=== PATIENT | female | born 1960 | race Caucasian/White ===

== ENCOUNTER 2016-06-29 08:03 | Emergency (ER) | payer MEDICAID ==
[2016-06-29 08:26] VITALS: BMI 21.1
[2016-06-29] MEDS ORDERED: Sodium Chloride 0.9% 1,000 ML IV STA (08:42)
--- NOTE | 2016-06-29 08:44 | ED PDOC ---
HPI: CCC, URI, Sore Throat Time Seen by Provider: 06/29/16 08:06 Chief Complaint (Nursing): Anxiety Chief Complaint (Provider): shortness of breath History Per: Patient History/Exam Limitations: no limitations Onset/Duration Of Symptoms: Days (x2) Current Symptoms Are (Timing): Still Present Associated Symptoms: Cough, Nasal Congestion Severity: Mild Additional Complaint(s): Patient is a 55 year old female, who is well known to the ED for multiple visits and drug seeking behavior, presents to the ED complaining of worsening cough x2 days. Cough is associated with headache, shortness of breath with cough , pleuritic chest pain, congestion, and body aches. Patient has chronic right wrist pain and denies any new pains. Denies nausea, vomiting, and diarrhea. of note: Patient is requesting Xanax. PMD: none Past Medical History Reviewed: Historical Data, Nursing Documentation, Vital Signs Vital Signs: Last Vital Signs Temp 98.4 F 06/29/16 12:33 Pulse 109 H 06/29/16 12:33 Resp 16 06/29/16 12:33 BP 110/63 06/29/16 12:33 Pulse Ox 98 06/29/16 12:33 - Medical History PMH: Anxiety, Arthritis, Back Problems, Bronchitis, Depression, Fractures (hx of fx R wrist and R side rib 1 mos ago), HTN Denies: Diabetes, Hepatitis, HIV, Chronic Kidney Disease, Seizures, Sexually Transmitted Disease - Family History Family History: States: Unknown Family Hx, Hypertension - Social History Current smoker - smoking cessation education provided: No Alcohol: None Drugs: Denies - Home Medications Home Medications: Ambulatory Orders Medication Instructions Recorded ALPRAZolam [Xanax] 1 mg PO TID PRN 11/28/15 Zolpidem [Ambien] 10 mg PO HS PRN 11/28/15 Albuterol HFA [Ventolin HFA 90 2 puff IH Q6 #1 inhaler 05/23/16 mcg/actuation (8 g)] Benzonatate [Tessalon Perles] 200 mg PO TID #30 sgl 05/23/16 Ibuprofen [Motrin] 600 mg PO TID 7 Days 06/29/16 - Allergies Allergies/Adverse Reactions: Allergies Allergy/AdvReac Type Severity Reaction Status Date / Time Penicillins Allergy unknown Verified 06/29/16 08:31 Review of Systems ROS Statement: Except As Marked, All Systems Reviewed And Found Negative Constitutional: Positive for: Other (body aches) ENT: Positive for: Nose Congestion Respiratory: Positive for: Cough, Shortness of Breath (with cough), Pleuritic Pain (chest pain with cough) Gastrointestinal: Negative for: Nausea, Vomiting, Diarrhea Neurological: Positive for: Headache. Negative for: Dizziness Physical Exam - Reviewed Nursing Documentation Reviewed: Yes Vital Signs Reviewed: Yes - Physical Exam Appears: Positive for: Well, Non-toxic, No Acute Distress Head Exam: Positive for: ATRAUMATIC, NORMAL INSPECTION, NORMOCEPHALIC Skin: Positive for: Normal Color, Warm, DRY Eye Exam: Positive for: EOMI, Normal appearance, PERRL ENT: Positive for: Nasal Congestion Neck: Positive for: Normal, Painless ROM, Supple Cardiovascular/Chest: Positive for: Regular Rate, Rhythm. Negative for: Edema, Gallop, Murmur Respiratory: Positive for: Normal Breath Sounds. Negative for: Accessory Muscle Use, Rhonchi, Respiratory Distress Gastrointestinal/Abdominal: Positive for: Normal Exam, Soft. Negative for: Tenderness Back: Positive for: Normal Inspection. Negative for: L CVA Tenderness, R CVA Tenderness Extremity: Positive for: Normal ROM. 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 HR improved. Resting. Pt. hr possible elevation mild from chronic pain and not taking meds. Here multiple times for the same in the past. AAOx3. Tolerated PO. Ambulating. Medical Decision Making Medical Decision Making: Time: 8:10 Impression: 55 y/o female with cough and congestion Plan: EKG CMP Troponin CBC CXR Motrin 600 mg PO IVF Influenza A B stat Scribe Attestation: Documented by Adryan Storey acting as a scribe for Brett Perez MD. MD Chaney Attestation: All medical record entries made by the Ritu were at my direction and personally dictated by me. I have reviewed the chart and agree that the record accurately reflects my personal performance of the history, physical exam, medical decision making, and the department course for this patient. I have also personally directed, reviewed, and agree with the discharge instructions and disposition. Disposition - Clinical Impression Clinical Impression: URI, acute - Patient ED Disposition Is Patient to be Admitted: No Counseled Patient/Family Regarding: Studies Performed, Diagnosis, Need For Followup, Rx Given - Disposition Referrals: Tish Dao MD [Primary Care Provider] - 06/30/16 Disposition: Routine/Home Disposition Time: 13:15 Condition: STABLE Additional Instructions: Return if not better in 3 days. Prescriptions: Ibuprofen [Motrin] 600 mg PO TID 7 Days Instructions: Upper Respiratory Infection (ED)
[2016-06-29 09:44] LABS: BASO # 0.1 K/uL (0.0-0.2); BASO % 1.1 % (0.0-2.0); EOS % 0.3 % (0.0-4.0); HEMATOCRIT 40.5 % (34.0-47.0); LYMPH # 0.9 K/uL (1.0-4.3); LYMPH % 10.5 % (20.0-40.0); MEAN CELL VOLUME 88.2 fl (81.0-99.0); MEAN CORPUSCULAR HEMOGLOBIN 29.2 pg (27.0-31.0); MEAN CORPUSCULAR HGB CONC 33.1 g/dL (33.0-37.0); MEAN PLATELET VOLUME 8.5 fl (7.2-11.7); MONO # 0.7 K/uL (0.0-0.8); MONO % 7.7 % (0.0-10.0); NEUT # 6.8 K/uL (1.8-7.0); NEUT % 80.4 % (50.0-75.0); NRBC % 0.1 % (0.0-0.0); WHITE BLOOD COUNT 8.5 K/uL (4.8-10.8)
[2016-06-29 09:52] LABS: ALB/GLOB RATIO 1.2 (1.0-2.1); ALKALINE PHOSPHATASE 104 U/L (38-126); ALT/SGPT 24 U/L (9-52); AST/SGOT 22 U/L (14-36); BILIRUBIN,TOTAL 0.4 mg/dl (0.2-1.3); BLOOD UREA NITROGEN 13 mg/dl (7-17); CALCIUM 9.5 mg/dL (8.4-10.2); CARBON DIOXIDE 21 mmol/L (22-30); CHLORIDE 104 mmol/L (98-107); GFR AFRICAN-AMERICAN > 60; GLUCOSE,RANDOM 105 mg/dL (65-105); POTASSIUM 3.9 MMOL/L (3.6-5.0); SODIUM 145 mmol/l (132-148); TOTAL PROTEIN 8.5 G/DL (6.3-8.2)
[2016-06-29] MEDS ORDERED: Oxycodone/Acetaminophen 5/325 mg Tab ONE (10:59)
[2016-06-29] MEDS ORDERED: Oxycodone/Acetaminophen 5/325 mg Tab PO ONE (11:02)
[2016-06-29 12:34] VITALS: BP 110/63; TEMP 98.4
--- NOTE | 2016-06-29 12:46 | RAD ---
HISTORY: dyspnea COMPARISON: Chest x-ray performed 05/11/16 TECHNIQUE: Chest PA and lateral FINDINGS: Examination limited by habitus. LUNGS: No focal consolidation. Please note that chest x-ray has limited sensitivity for the detection of pulmonary masses. PLEURA: No significant pleural effusion identified. No definite pneumothorax . CARDIOVASCULAR: Heart size appears within normal limits. Ectatic aorta. Atherosclerotic calcifications of the aorta. OSSEOUS STRUCTURES: Osseous demineralization. Degenerative changes. Loss of vertebral body height at multiple levels. VISUALIZED UPPER ABDOMEN: Unremarkable. OTHER FINDINGS: None. IMPRESSION: No focal consolidation, significant pleural effusion, or definite pneumothorax identified. Osseous demineralization. Multilevel degenerative changes. Loss of vertebral body height at multiple levels; correlate clinically for age indeterminate compression fractures.
[2016-06-29 13:42] VITALS: PULSE 99
[2016-06-29 14:19] VITALS: RESP 18; O2SAT 95
--- NOTE | 2016-06-30 07:47 | CARD ---
APPROVED REPORT EKG Measurement Heart [id number] <Conclusion> Sinus tachycardia Nonspecific ST abnormality Abnormal ECG
== END 2016-06-29 14:03 | disposition home or self-care (01) ==
LOC: H.ER 08:03
DX: J06.9 Acute upper respiratory infection, unspecified (principal); I10 Essential (primary) hypertension; Z86.59 Personal history of other mental and behavioral disorders

== ENCOUNTER 2016-07-09 23:37 | Observation (INO) | payer MEDICAID ==
[2016-07-09 23:37] VITALS: BMI 21.1
[2016-07-09 23:52] VITALS: BP 118/68; PULSE 112; RESP 18; TEMP 97.4; O2SAT 97
--- NOTE | 2016-07-10 00:54 | ED PDOC ---
HPI: CCC, URI, Sore Throat Time Seen by Provider: 07/09/16 23:53 Chief Complaint (Nursing): Flu-like Symptoms Chief Complaint (Provider): cough History Per: Patient History/Exam Limitations: no limitations Have you had recent travel within the past 21 days to any of the following countries: [place], [place], [place] or [place]?: No Onset/Duration Of Symptoms: Hrs Current Symptoms Are (Timing): Still Present Additional Complaint(s): 55yo female presents to the ED stating she [facility] at 1700 and has been walking around and went into another residential and was turned away and told to go to ED. Patient states she has bronchitis and complaining of a cough. No fever, chills. Asking to stay until 7AM. Past Medical History Reviewed: Historical Data, Nursing Documentation, Vital Signs Vital Signs: Last Vital Signs Temp 97.4 F L 07/09/16 23:50 Pulse 112 H 07/09/16 23:50 Resp 18 07/09/16 23:50 BP 118/68 07/09/16 23:50 Pulse Ox 97 07/10/16 06:17 - Medical History PMH: Anxiety, Arthritis, Back Problems, Bronchitis, Depression, Fractures (hx of fx R wrist and R side rib 1 mos ago), HTN Denies: Diabetes, Hepatitis, HIV, Chronic Kidney Disease, Seizures, Sexually Transmitted Disease - Surgical History Surgical History: No Surg Hx - Family History Family History: States: Hypertension - Home Medications Home Medications: Ambulatory Orders Medication Instructions Recorded ALPRAZolam [Xanax] 1 mg PO TID PRN 11/28/15 Zolpidem [Ambien] 10 mg PO HS PRN 11/28/15 Albuterol HFA [Ventolin HFA 90 2 puff IH Q6 #1 inhaler 05/23/16 mcg/actuation (8 g)] Benzonatate [Tessalon Perles] 200 mg PO TID #30 sgl 05/23/16 Benzonatate [Tessalon Perles] 100 mg PO BID PRN 5 Days 06/29/16 Ibuprofen [Motrin] 600 mg PO TID 7 Days 06/29/16 - Allergies Allergies/Adverse Reactions: Allergies Allergy/AdvReac Type Severity Reaction Status Date / Time Penicillins Allergy unknown Verified 03/31/17 23:50 Review of Systems ROS Statement: Except As Marked, All Systems Reviewed And Found Negative Constitutional: Negative for: Fever, Chills Respiratory: Positive for: Cough Physical Exam - Reviewed Nursing Documentation Reviewed: Yes Vital Signs Reviewed: Yes - Physical Exam Appears: Positive for: Well, No Acute Distress Head Exam: Positive for: ATRAUMATIC, NORMAL INSPECTION, NORMOCEPHALIC Skin: Positive for: Normal Color, Warm, Dry Eye Exam: Positive for: Normal appearance, EOMI, PERRL ENT: Positive for: Normal ENT Inspection Neck: Positive for: Normal, Painless ROM, Supple Cardiovascular/Chest: Positive for: Regular Rate, Rhythm. Negative for: Murmur , Tachycardia Respiratory: Positive for: Normal Breath Sounds. Negative for: Wheezing, Respiratory Distress Gastrointestinal/Abdominal: Positive for: Normal Exam, Bowel Sounds, Soft. Negative for: Tenderness Back: Positive for: Normal Inspection. Negative for: L CVA Tenderness, R CVA Tenderness Extremity: Positive for: Normal ROM. Negative for: Deformity, Swelling Neurologic/Psych: Positive for: Alert, Oriented. Negative for: Motor/Sensory Deficits - ECG O2 Sat by Pulse Oximetry: 97 Pulse Ox Interpretation: Normal (RA) Medical Decision Making Medical Decision Makin: Impression: homelessness Plan: ED obs 0617: Patient is stable for d/c. Scribe Attestation: Documented by Rachel Ibrahim acting as a scribe for Alfa Boudreaux MD. Provider Scribe Attestation: All medical record entries made by the Scribe were at my direction and personally dictated by me. I have reviewed the chart and agree that the record accurately reflects my personal performance of the history, physical exam, medical decision making, and the department course for this patient. I have also personally directed, reviewed, and agree with the discharge instructions and disposition. ED OBSERVATION Date of observation admission: 07/10/16 Time of observation admission: 00:02 - Observation admission statement Patient is being placed in observation because:: homelessness Disposition - Clinical Impression Clinical Impression: Cough - Patient ED Disposition Is Patient to be Admitted: No - Disposition Disposition: Routine/Home Disposition Time: 06:17 Condition: STABLE
== END 2016-07-10 06:20 | disposition home or self-care (01) ==
LOC: H.ER 23:37 → H.EROBSV 07-10 00:02
PROVIDERS: ADMIT Emergency Medicine; ATTEND Emergency Medicine
DX: R05 Cough (principal); Z59.0 Homelessness; I10 Essential (primary) hypertension

== ENCOUNTER 2016-08-12 21:35 | Emergency (ER) | payer MEDICAID ==
[2016-08-12 21:36] VITALS: BMI 21.1
[2016-08-12 21:39] VITALS: BP 127/93; PULSE 82; RESP 18; TEMP 97.7; O2SAT 98
--- NOTE | 2016-08-12 23:13 | ED PDOC ---
HPI: General Adult Time Seen by Provider: 08/12/16 21:43 Chief Complaint (Nursing): Medical Clearance Chief Complaint (Provider): medical and psych clearance History Per: Patient History/Exam Limitations: no limitations Onset/Duration Of Symptoms: Mins Have you had recent travel within the past 21 days to any of the following countries: [place], [place], [place] or [place]?: No Current Symptoms Are (Timing): Better Additional Complaint(s): 55yo female with PMHx including anxiety presents to the ED, in custody, for medical and psychiatric clearance. Patient has no medical or psychiatric complaints at this time. Past Medical History Reviewed: Historical Data, Nursing Documentation, Vital Signs Vital Signs: Last Vital Signs Temp 97.7 F 08/12/16 21:37 Pulse 82 08/12/16 21:37 Resp 18 08/12/16 21:37 BP 127/93 H 08/12/16 21:37 Pulse Ox 98 08/12/16 23:15 - Medical History PMH: Anxiety, Arthritis, Back Problems, Bronchitis, Depression, Fractures (hx of fx R wrist and R side rib 1 mos ago), HTN Denies: HIV, Chronic Kidney Disease, Seizures, Sexually Transmitted Disease - Surgical History Surgical History: No Surg Hx - Family History Family History: States: Hypertension - Immunization History Hx Tetanus Toxoid Vaccination: No Hx Influenza Vaccination: No Hx Pneumococcal Vaccination: No - Home Medications Home Medications: Ambulatory Orders Medication Instructions Recorded ALPRAZolam [Xanax] 1 mg PO TID PRN 11/28/15 Zolpidem [Ambien] 10 mg PO HS PRN 11/28/15 Albuterol HFA [Ventolin HFA 90 2 puff IH Q6 #1 inhaler 05/23/16 mcg/actuation (8 g)] Benzonatate [Tessalon Perles] 100 mg PO BID PRN 5 Days 06/29/16 Ibuprofen [Motrin] 600 mg PO TID 7 Days 06/29/16 Potassium Chloride [K-Dur 20] 1 tab PO BID #25 tab 07/10/16 Benzonatate [Tessalon Perle] 100 mg PO BID #12 capsule 08/10/16 - Allergies Allergies/Adverse Reactions: Allergies Allergy/AdvReac Type Severity Reaction Status Date / Time Penicillins Allergy unknown Verified 07/10/16 11:42 Review of Systems ROS Statement: Except As Marked, All Systems Reviewed And Found Negative Physical Exam - Reviewed Nursing Documentation Reviewed: Yes Vital Signs Reviewed: Yes - Physical Exam Appears: Positive for: Well, No Acute Distress Head Exam: Positive for: ATRAUMATIC, NORMAL INSPECTION, NORMOCEPHALIC Skin: Positive for: Normal Color, Warm, Dry Eye Exam: Positive for: Normal appearance Neck: Positive for: Normal, Painless ROM, Supple Cardiovascular/Chest: Positive for: Regular Rate, Rhythm. Negative for: Murmur , Tachycardia Respiratory: Positive for: Normal Breath Sounds. Negative for: Wheezing, Respiratory Distress Gastrointestinal/Abdominal: Positive for: Normal Exam, Soft. Negative for: Tenderness Back: Positive for: Normal Inspection Extremity: Positive for: Normal ROM. Negative for: Deformity, Swelling Neurologic/Psych: Positive for: Alert, Oriented (x3 ) - ECG O2 Sat by Pulse Oximetry: 98 Pulse Ox Interpretation: Normal (RA) Medical Decision Making Medical Decision Makin: Impression: 55yo female presents for medical and psychiatric clearance Plan: Patient medically cleared for crisis evaluation. Scribe Attestation: Documented by Rachel Ibrahim acting as a scribe for Ave Nunez MD. Provider Scribe Attestation: All medical record entries made by the Scribe were at my direction and personally dictated by me. I have reviewed the chart and agree that the record accurately reflects my personal performance of the history, physical exam, medical decision making, and the department course for this patient. I have also personally directed, reviewed, and agree with the discharge instructions and disposition. Disposition - Clinical Impression Clinical Impression: Adjustment disorder - Disposition Disposition: Discharged/Transfer to Law Enforcement Disposition Time: 00:08 Condition: STABLE Additional Instructions: PATIENT MEDICALLY AND PSYCHIATRICALLY CLEARED FOR INCARCERATION. Instructions: Mood Disorders (ED)
== END 2016-08-13 00:46 ==
LOC: H.ER 21:35
DX: Z04.6 Encounter for general psychiatric examination, requested by authority (principal); Z88.0 Allergy status to penicillin

== ENCOUNTER 2016-11-06 14:30 | Emergency (ER) | payer MEDICAID ==
[2016-11-06 14:30] VITALS: BMI 21.1
[2016-11-06 14:36] VITALS: BP 138/93; PULSE 104; RESP 18; TEMP 99.8; O2SAT 100
[2016-11-06] MEDS ORDERED: Acetaminophen-Codeine 300/30 mg Tab PO STA (14:47)
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
--- NOTE | 2016-11-07 09:39 | RAD ---
PROCEDURE: Right Wrist Radiographs. HISTORY: wrist pain COMPARISON: None. FINDINGS: BONES: Questionable fracture of the distal radius and ulnar styloid. JOINTS: Normal. No dislocation. SOFT TISSUES: Normal. OTHER FINDINGS: None. IMPRESSION: Questionable fracture of the distal radius and ulnar styloid.
== END 2016-11-06 15:40 | disposition home or self-care (01) ==
LOC: H.ER 14:30
DX: S09.90XA Unspecified injury of head, initial encounter (principal); S60.212A Contusion of left wrist, initial encounter; Y04.0XXA Assault by unarmed brawl or fight, initial encounter; Y92.89 Other specified places as the place of occurrence of the external cause; F32.9 Major depressive disorder, single episode, unspecified; F41.9 Anxiety disorder, unspecified; I10 Essential (primary) hypertension; Z88.0 Allergy status to penicillin

== ENCOUNTER 2017-04-11 05:43 | Emergency (ER) | payer MEDICAID ==
[2017-04-11 05:44] VITALS: BMI 21.1
--- NOTE | 2017-04-11 06:14 | ED PDOC ---
HPI: Psych/Substance Abuse Time Seen by Provider: 04/11/17 05:46 Chief Complaint (Nursing): Substance Abuse History Per: Patient, EMS (Pt is a 56 y/o female with hx of Anxiety, Arthritis, seizure disorder and frequent ED visits for medication abuse brought in from skilled nursing for questionnable overdose of Xanax. As per EMS, pt was noted be slurring and lethargic with unsteady gait. She was found to have an empty bottle of Xanax that was recently filled on March 21. On questioning, pt denies taking xanax. Reports that she took Fioricet to relieve her left leg pain. States she took 8 pills at 8 pm. Denies suicidal or psychotic thoughts. ) Past Medical History Vital Signs: Last Vital Signs Temp 98.9 F 04/11/17 05:49 Pulse 84 04/11/17 05:49 Resp 16 04/11/17 05:49 BP 130/85 04/11/17 05:49 Pulse Ox 100 04/11/17 05:49 - Medical History PMH: Anxiety, Arthritis, Back Problems, Bronchitis, Depression, Fractures (hx of fx R wrist and R side rib 1 mos ago), HTN Denies: HIV, Chronic Kidney Disease, Seizures, Sexually Transmitted Disease - Family History Family History: States: Hypertension - Immunization History Hx Tetanus Toxoid Vaccination: No Hx Influenza Vaccination: No Hx Pneumococcal Vaccination: No - Home Medications Home Medications: Ambulatory Orders Medication Instructions Recorded ALPRAZolam [Xanax] 1 mg PO TID PRN 11/28/15 Zolpidem [Ambien] 10 mg PO HS PRN 11/28/15 Albuterol HFA [Ventolin HFA 90 2 puff IH Q6 #1 inhaler 05/23/16 mcg/actuation (8 g)] Benzonatate [Tessalon Perles] 100 mg PO BID PRN 5 Days sgl 06/29/16 Ibuprofen [Motrin] 600 mg PO TID 7 Days tab 06/29/16 Potassium Chloride [K-Dur 20] 1 tab PO BID #25 tab 07/10/16 Benzonatate [Tessalon Perle] 100 mg PO BID #12 capsule 08/10/16 Acetaminophen [Tylenol 325mg tab] 650 mg PO Q6 #30 tab 11/06/16 - Allergies Allergies/Adverse Reactions: Allergies Allergy/AdvReac Type Severity Reaction Status Date / Time Penicillins Allergy unknown Verified 11/06/16 14:33 Review of Systems Constitutional: Negative for: Fever, Chills Cardiovascular: Negative for: Chest Pain Respiratory: Negative for: Cough, Shortness of Breath Gastrointestinal: Negative for: Nausea, Vomiting, Abdominal Pain, Diarrhea Genitourinary Female: Negative for: Dysuria Musculoskeletal: Positive for: Leg Pain Neurological: Positive for: Change in Speech (Slurred speech), Headache. Negative for: Weakness, Numbness, Confusion, Seizures, Altered Mental Status Psych: Negative for: Suicidal ideation Physical Exam - Reviewed Nursing Documentation Reviewed: Yes Vital Signs Reviewed: Yes - Physical Exam Appears: Positive for: Well, Non-toxic, No Acute Distress Skin: Positive for: Normal Color Eye Exam: Positive for: EOMI, PERRL. Negative for: Nystagmus, Conjunctival injection Cardiovascular/Chest: Positive for: Regular Rate, Rhythm. Negative for: Murmur Respiratory: Positive for: Normal Breath Sounds. Negative for: Accessory Muscle Use, Crackles, Rales Gastrointestinal/Abdominal: Positive for: Normal Exam, Bowel Sounds, Soft. Negative for: Tenderness Extremity: Negative for: Normal ROM, Tenderness, Swelling Neurologic/Psych: Positive for: Alert, Oriented, Other (Slurred speech; comprehensible). Negative for: Motor/Sensory Deficits, Facial Droop - Laboratory Results Result Diagrams: 04/11/17 06:30 04/11/17 06:30 - ECG O2 Sat by Pulse Oximetry: 100 Medical Decision Making Medical Decision Making: Pt is a 56 y/o female with hx of Anxiety, Arthritis, seizure disorder and frequent ED visits for medication abuse brought in from skilled nursing for questionnable overdose of Xanax and/or Fiorocet. Plan: CBC BMP U/A Drug Tox, urine Alcohol, serum Acetaminophen Salicylic acid Poison control contacted by RN. Advised to call back and report lab findings. Signed pt to Dr. Nunez. Disposition - Clinical Impression Clinical Impression: Acetaminophen overdose - Patient ED Disposition Is Patient to be Admitted: Transfer of Care - Disposition Disposition Time: 07:46 Condition: FAIR Forms: [employer] (Yoruba)
[2017-04-11 06:40] LABS: BASO # 0.1 K/uL (0.0-0.2); BASO % 1.2 % (0.0-2.0); EOS # 0.2 K/uL (0.0-0.7); EOS % 2.5 % (0.0-4.0); HEMOGLOBIN 10.8 g/dL (12.0-16.0); LYMPH # 3.2 K/uL (1.0-4.3); LYMPH % 43.5 % (20.0-40.0); MEAN CELL VOLUME 84.6 fl (81.0-99.0); MEAN CORPUSCULAR HEMOGLOBIN 28.9 pg (27.0-31.0); MEAN CORPUSCULAR HGB CONC 34.2 g/dL (33.0-37.0); MEAN PLATELET VOLUME 7.7 fl (7.2-11.7); MONO # 0.4 K/uL (0.0-0.8); MONO % 5.1 % (0.0-10.0); NEUT # 3.5 K/uL (1.8-7.0); NEUT % 47.7 % (50.0-75.0); RBC 3.72 Mil/uL (3.80-5.20); RED CELL DISTRIBUTION WIDTH 13.7 % (11.5-14.5); WHITE BLOOD COUNT 7.4 K/uL (4.8-10.8)
[2017-04-11] MEDS ORDERED: Sodium Chloride 0.9% 1,000 ML IV STA (06:47)
[2017-04-11 06:51] LABS: BLOOD UREA NITROGEN 13 mg/dl (7-17); CALCIUM 9.6 mg/dL (8.4-10.2); GFR AFRICAN-AMERICAN > 60; GFR NON-AFRICAN AMERICAN > 60
[2017-04-11 06:53] LABS: ACETAMINOPHEN < 10.0 ug/ml (10.0-30.0); SALICYLATE < 1.0 mg/dl
[2017-04-11] MEDS ORDERED: Potassium Chloride 20 mEq ER Tab PO ONE (07:12)
--- NOTE | 2017-04-11 07:26 | ED PDOC ---
- Laboratory Results Result Diagrams: 04/11/17 06:30 04/11/17 06:30 - ECG O2 Sat by Pulse Oximetry: 100 Medical Decision Making Medical Decision Makin:00 Patient signed out to me by LAZARUS, pending clinical sobriety Saw and evaluated patient, awaiting urine tox, CT Head, and reevaluation 07:30 Signing out patient to Dr. Nunez Scribe Attestation: Documented by Linda Acosta, acting as a scribe for Hay Ortega MD Provider Scribe Attestation: All medical record entries made by the Scribe were at my direction and personally dictated by me. I have reviewed the chart and agree that the record accurately reflects my personal performance of the history, physical exam, medical decision making, and the department course for this patient. I have also personally directed, reviewed, and agree with the discharge instructions and disposition. Disposition - Clinical Impression Clinical Impression: Medication overdose, Chronic foot pain - POA Present On Arrival: None - Disposition Referrals: [facility] [Outside] [facility] [Outside] Disposition: Transfer of Care Disposition Time: 07:30 Condition: STABLE Instructions: Butalbital/Aspirin/Caffeine/Codeine (By mouth), Chronic Pain (ED) Forms: [employer] (Spanish) Patient Signed Over To: Ave Nunez
[2017-04-11 07:49] LABS: BENZODIAZEPINES, UR NEGATIVE (NEGATIVE); OPIATES, UR NEGATIVE (NEGATIVE); PHENCYCLIDINE, UR NEGATIVE (NEGATIVE)
[2017-04-11 07:51] LABS: ALB/GLOB RATIO 1.1 (1.0-2.1); BILIRUBIN,DIRECT 0.3 mg/ml (0.0-0.4)
[2017-04-11 07:53] LABS: BARBITURATES, UR POSITIVE (NEGATIVE)
[2017-04-11 08:03] VITALS: O2SAT 100
--- NOTE | 2017-04-11 08:10 | ED PDOC ---
- Laboratory Results Result Diagrams: 04/11/17 06:30 04/11/17 06:30 - ECG O2 Sat by Pulse Oximetry: 100 Medical Decision Making Medical Decision Makin:30 Patient singed over to me by Dr. Guido 09:45 Pt AAOX3, steady gait. Upon discharge, pt c/o L ankle pain X 10 weeks, evaluated by doctor, given Rx Motrin, requesting pain medication. On exam, foot without erythema, edema, deformity, induration, +2 DP pulse, sensation intact. Motrin ordered, will refer to Podiatry consult. Scribe Attestation: Documented by Linda Acosta, acting as a scribe for Ave Nunez MD Provider Scribe Attestation: All medical record entries made by the Scribe were at my direction and personally dictated by me. I have reviewed the chart and agree that the record accurately reflects my personal performance of the history, physical exam, medical decision making, and the department course for this patient. I have also personally directed, reviewed, and agree with the discharge instructions and disposition. Disposition - Clinical Impression Clinical Impression: Medication overdose, Chronic foot pain - POA Present On Arrival: None - Disposition Referrals: [facility] [Outside] Podiatry Clinic [Outside] Disposition: Routine/Home Disposition Time: 09:53 Condition: STABLE Instructions: Butalbital/Aspirin/Caffeine/Codeine (By mouth), Chronic Pain (ED) Forms: [employer] (Bengali)
--- NOTE | 2017-04-11 08:30 | CT ---
PROCEDURE: CT HEAD WITHOUT CONTRAST. HISTORY: Slurred speech COMPARISON: Noncontrast head CT performed 11/29/15 TECHNIQUE: Axial computed tomography images were obtained through the head/brain without intravenous contrast. Radiation dose: Total exam DLP = 737.11 mGy-cm. This CT exam was performed using one or more of the following dose reduction techniques: Automated exposure control, adjustment of the mA and/or kV according to patient size, and/or use of iterative reconstruction technique. FINDINGS: HEMORRHAGE: No intracranial hemorrhage. BRAIN: No mass effect or edema. Evidence of pineal gland cyst re-identified. The fonseca-white matter differentiation appears intact. Please note that MRI with diffusion imaging is more sensitive in the detection of acute ischemic event. VENTRICLES: No hydrocephalus. CALVARIUM: Unremarkable. PARANASAL SINUSES: Unremarkable as visualized. No significant inflammatory changes. MASTOID AIR CELLS: Unremarkable as visualized. No inflammatory changes. OTHER FINDINGS: None. IMPRESSION: No acute intracranial pathology identified. Evidence of pineal gland cyst re-identified.
[2017-04-11 10:28] VITALS: BP 138/88; PULSE 74; RESP 20; TEMP 97.7
[2017-04-11 11:35] LABS: SQUAMOUS EPITHIAL 2 /hpf (0-5); URINE BILIRUBIN NEGATIVE (NEGATIVE); URINE BLOOD NEGATIVE (NEGATIVE); URINE CLARITY SLIGHTY-CLOUDY (Clear); URINE COLOR STRAW (YELLOW); URINE GLUCOSE (UA) NEG (Normal); URINE LEUKOCYTE ESTERASE SMALL Leu/uL (Negative); URINE NITRATE NEGATIVE (NEGATIVE); URINE PROTEIN NEGATIVE (NEGATIVE); URINE UROBILINOGEN 0.2-1.0 mg/dL (0.2-1.0)
== END 2017-04-11 13:06 | disposition home or self-care (01) ==
LOC: H.ER 05:43
DX: T39.1X1A Poisoning by 4-Aminophenol derivatives, accidental (unintentional), initial encounter (principal); Z88.0 Allergy status to penicillin; I10 Essential (primary) hypertension; G89.29 Other chronic pain; G40.909 Epilepsy, unspecified, not intractable, without status epilepticus
CPT/HCPCS: 70450; 80048; 80076; 81003; 85025; 99285; G0480; J7040

== ENCOUNTER 2017-06-07 14:01 | Emergency (ER) | payer MEDICAID, OTHER ==
[2017-06-07 14:02] VITALS: BMI 21.1
[2017-06-07 14:07] VITALS: BP 125/84; PULSE 104; RESP 16; TEMP 97.6; O2SAT 96
--- NOTE | 2017-06-07 15:12 | ED PDOC ---
HPI: Altered Mental Status Time Seen by Provider: 06/07/17 14:36 Chief Complaint (Nursing): Altered Mental Status Chief Complaint (Provider): does not remember what happened History Per: Patient, EMS History/Exam Limitations: Clinical Condition Onset/Duration Of Symptoms: Hrs Current Symptoms Are (Timing): Still Present Description Of Symptoms: Confused Usual Baseline: Unknown Exacerbating Factor(s): Unknown Additional Complaint(s): 56 yo ,f, PMhx/o Anxiety, Arthritis, seizure disorder, substant abuse disorder is brought in by BLS after patient was found on the floor at her son's apartment. BLS reports that neighbours heard someone to fall and called 911. Patient was found on floor by BLS unable to remember what happened. In ED patient awake, alert, oriented x2 (not in place) reports that she took 2 tab of Ambient to sleep in the morning. She reports is living now in her son apartment and before that she was living in a alf. She only remember that she was outside the house cleaning and sweeping, but nothing else. She states in ED that she has hx/o seizure disorder and c/o lower back pain over sacrum area. She denies chest pain, SOB, cough, n,v,d,abd pain, dysuria, suicidal ideation, visual or auditory hallucination. Patient a recent visit to ED for Medication overdose. Patient able to give her son's phone number [phone]. Called patient's son. He reports that he was not at home and all he knows is from the neighbours who told him she fell. Reports patient is homeless and only stayed one night with him, but will return to alf today and he would help about a rehab program for her mother. PMD: DR Guadalupe in [place]" Patient does not remember whole name Past Medical History Vital Signs: Last Vital Signs Temp 97.6 F 06/07/17 14:03 Pulse 104 H 06/07/17 14:03 Resp 16 06/07/17 14:03 BP 125/84 06/07/17 14:03 Pulse Ox 96 06/07/17 14:03 - Medical History PMH: Anxiety, Arthritis, Back Problems, Bronchitis, Depression, Fractures (hx of fx R wrist and R side rib 1 mos ago), HTN Denies: HIV, Chronic Kidney Disease, Seizures, Sexually Transmitted Disease - Family History Family History: States: Hypertension - Social History Alcohol: None Drugs: Denies - Immunization History Hx Tetanus Toxoid Vaccination: No Hx Influenza Vaccination: No Hx Pneumococcal Vaccination: No - Home Medications Home Medications: Ambulatory Orders Medication Instructions Recorded ALPRAZolam [Xanax] 1 mg PO TID PRN 11/28/15 Zolpidem [Ambien] 10 mg PO HS PRN 11/28/15 Albuterol HFA [Ventolin HFA 90 2 puff IH Q6 #1 inhaler 05/23/16 mcg/actuation (8 g)] Benzonatate [Tessalon Perles] 100 mg PO BID PRN 5 Days sgl 06/29/16 Ibuprofen [Motrin] 600 mg PO TID 7 Days tab 06/29/16 Potassium Chloride [K-Dur 20] 1 tab PO BID #25 tab 07/10/16 Benzonatate [Tessalon Perle] 100 mg PO BID #12 capsule 08/10/16 Acetaminophen [Tylenol 325mg tab] 650 mg PO Q6 #30 tab 11/06/16 Nitrofurantoin Macrocrystals 1 cap PO BID #14 cap 06/07/17 [Macrobid] - Allergies Allergies/Adverse Reactions: Allergies Allergy/AdvReac Type Severity Reaction Status Date / Time Penicillins Allergy unknown Verified 04/11/17 10:18 Review of Systems Musculoskeletal: Positive for: Back Pain Physical Exam - Physical Exam Appears: Positive for: No Acute Distress Head Exam: Positive for: ATRAUMATIC, NORMOCEPHALIC Skin: Positive for: Normal Color Cardiovascular/Chest: Positive for: Regular Rate, Rhythm. Negative for: Murmur Respiratory: Positive for: Rales (right lung base). Negative for: Rhonchi, Wheezing Gastrointestinal/Abdominal: Positive for: Soft. Negative for: Tenderness, Distended, Guarding, Rebound Back: Positive for: Normal Inspection, Other (Td to palpation over sacral region , able to be in sitting position.straight raise leg test neg b/l) Extremity: Positive for: Normal ROM. Negative for: Tenderness, Pedal Edema Neurologic/Psych: Positive for: Alert, Oriented. Negative for: Motor/Sensory Deficits, Aphasia - Laboratory Results Result Diagrams: 06/07/17 15:44 06/07/17 15:58 - ECG O2 Sat by Pulse Oximetry: 96 Medical Decision Making Medical Decision Makin:20 56 yo , f, Pmhx/o Anxiety, arhtirits, brought in by BLS for AMS Initial Impression AMS may be secondary to postictal status after seizure or after withdrawal to medications (Benzodiazepines) Differential Illicit Drug Overdose. Medication Overdose, Meningitis,Encephalitis, Sepsis, Delirium Plan CBC, CMP,Mg, Phosp, ProBNP, Urine tox EKG, troponin CXR Ct Head w/o contrast Iv fluids NS 100 ml/h Patient able to give her son's phone number [phone]. Called patient's son. He reports that he was not at home and all he knows is from the neighbours who told him she fell down. Reports patient is homeless and only stayed one night with him, but will return to alf today and he would help about a rehab program for her mother. 17:55 Patient more oriented, reports feeling better. Labs reviewed CBC 12.1 K3.4 Pending UA , urine tox Kdur 20 mg given Disposition - Clinical Impression Clinical Impression: Sedative abuse, UTI (urinary tract infection) - Disposition Disposition Time: 17:59 Condition: IMPROVED Additional Instructions: FOLLOW UP WITH YOUR DOCTOR THIS WEEK PLEASE REFER TO ATTACHED LIST FOR ADDICTION TREATMENT CENTERS Prescriptions: Nitrofurantoin Macrocrystals [Macrobid] 1 cap PO BID #14 cap Instructions: Urinary Tract Infections in Adults, Drug Abuse and Drug Addiction (DC) Forms: [employer] (Colombian)
[2017-06-07 15:50] LABS: BASO # 0.1 K/uL (0.0-0.2); EOS # 0.2 K/uL (0.0-0.7); EOS % 1.5 % (0.0-4.0); HEMOGLOBIN 12.5 g/dL (12.0-16.0); LYMPH # 3.4 K/uL (1.0-4.3); LYMPH % 28.1 % (20.0-40.0); MEAN CELL VOLUME 84.3 fl (81.0-99.0); MEAN CORPUSCULAR HEMOGLOBIN 27.8 pg (27.0-31.0); MEAN CORPUSCULAR HGB CONC 33.1 g/dL (33.0-37.0); MEAN PLATELET VOLUME 8.5 fl (7.2-11.7); MONO # 0.7 K/uL (0.0-0.8); MONO % 5.9 % (0.0-10.0); NEUT # 7.7 K/uL (1.8-7.0); NEUT % 63.5 % (50.0-75.0); NRBC % 0.1 % (0.0-0.0); RBC 4.5 Mil/uL (3.80-5.20); RED CELL DISTRIBUTION WIDTH 15.2 % (11.5-14.5); WHITE BLOOD COUNT 12.1 K/uL (4.8-10.8)
[2017-06-07 16:17] LABS: ALB/GLOB RATIO 1.2 (1.0-2.1); ALBUMIN 4.2 g/dL (3.5-5.0); ALT/SGPT 21 U/L (9-52); AST/SGOT 27 U/L (14-36); BLOOD UREA NITROGEN 19 mg/dl (7-17); CALCIUM 9.4 mg/dL (8.4-10.2); GFR AFRICAN-AMERICAN > 60; GFR NON-AFRICAN AMERICAN > 60; MAGNESIUM 2.2 MG/DL (1.6-2.3)
--- NOTE | 2017-06-07 16:18 | RAD ---
PROCEDURE: CHEST RADIOGRAPH, 1 VIEW HISTORY: AMS.Possible Seizure COMPARISON: Chest radiograph dated 08/10/2016. FINDINGS: LUNGS: Clear. PLEURA: No pneumothorax or pleural fluid seen. CARDIOVASCULAR: Normal. OSSEOUS STRUCTURES: Unchanged. VISUALIZED UPPER ABDOMEN: Normal. OTHER FINDINGS: None. IMPRESSION: No active disease.
[2017-06-07 16:28] LABS: B-TYPE NATRIURETIC PEPTIDE 20.2 pg/ml (0-900)
[2017-06-07] MEDS ORDERED: Sodium Chloride 0.9% 1,000 ML IV SCH (16:30)
[2017-06-07] MEDS ORDERED: Potassium Chloride 20 mEq ER Tab PO ONE ×2 (16:31→16:47)
--- NOTE | 2017-06-07 16:41 | CT ---
PROCEDURE: CT HEAD WITHOUT CONTRAST. HISTORY: AMS.Fall.Possible seizure.Possible overdose COMPARISON: Comparison made with CT scan brain 04/11/2017. TECHNIQUE: Contiguous helical/ transaxial sections were obtained through the head/brain without intravenous contrast. Radiation dose: Total exam DLP = 1498.39 mGy-cm. This CT exam was performed using one or more of the following dose reduction techniques: Automated exposure control, adjustment of the mA and/or kV according to patient size, and/or use of iterative reconstruction technique. FINDINGS: HEMORRHAGE: No acute parenchymal, subarachnoid or extra-axial hemorrhage. BRAIN: No evidence of large acute infarct. No change pineal gland cyst. . Mild volume most notably affecting the posterior fossa structures. The. VENTRICLES: No obstructive hydrocephalus. CALVARIUM: No acute calvarial fractures are identified. PARANASAL SINUSES: Unremarkable as visualized. No significant inflammatory changes. MASTOID AIR CELLS: Unremarkable as visualized. No inflammatory changes. OTHER FINDINGS: None. IMPRESSION: No acute intracranial hemorrhage. Stable appearing pineal gland cyst. New Mild volume loss most notably affecting the posterior fossa structures. .
--- NOTE | 2017-06-07 17:52 | ED PDOC ---
- Laboratory Results Result Diagrams: 06/07/17 15:44 06/07/17 15:58 - ECG O2 Sat by Pulse Oximetry: 96 (RA) Pulse Ox Interpretation: Normal Medical Decision Making Medical Decision Making: Time: 1730 --Patient is signed off to Dr. Linnette James. Pending urine results. Scribe Attestation: Documented by Kiersten Valdez, acting as a scribe for Linnette James MD. Provider Scribe Attestation: All medical record entries made by the Scribe were at my direction and personally dictated by me. I have reviewed the chart and agree that the record accurately reflects my personal performance of the history, physical exam, medical decision making, and the department course for this patient. I have also personally directed, reviewed, and agree with the discharge instructions and disposition. Disposition - Clinical Impression Clinical Impression: Sedative abuse, UTI (urinary tract infection) - POA Present On Arrival: None - Disposition Disposition: Routine/Home Disposition Time: 19:00 Condition: IMPROVED Additional Instructions: FOLLOW UP WITH YOUR DOCTOR THIS WEEK PLEASE REFER TO ATTACHED LIST FOR ADDICTION TREATMENT CENTERS Prescriptions: Nitrofurantoin Macrocrystals [Macrobid] 1 cap PO BID #14 cap Instructions: Urinary Tract Infections in Adults, Drug Abuse and Drug Addiction (DC) Forms: [employer] (Armenian)
[2017-06-07 18:37] LABS: SQUAMOUS EPITHIAL 2 /hpf (0-5); URINE AMORPHOUS SEDIMENT RARE /ul (<OCC); URINE BACTERIA MANY (<OCC); URINE BILIRUBIN NEGATIVE (NEGATIVE); URINE BLOOD NEGATIVE (NEGATIVE); URINE CLARITY SLIGHTY-CLOUDY (Clear); URINE COLOR YELLOW (YELLOW); URINE GLUCOSE (UA) NEG (Normal); URINE LEUKOCYTE ESTERASE SMALL Leu/uL (Negative); URINE NITRATE POSITIVE (NEGATIVE); URINE PROTEIN NEGATIVE (NEGATIVE); URINE UROBILINOGEN 0.2-1.0 mg/dL (0.2-1.0)
[2017-06-07 18:53] LABS: BARBITURATES, UR POSITIVE (NEGATIVE); BENZODIAZEPINES, UR NEGATIVE (NEGATIVE); OPIATES, UR NEGATIVE (NEGATIVE); PHENCYCLIDINE, UR NEGATIVE (NEGATIVE)
--- NOTE | 2017-06-08 11:49 | CARD ---
APPROVED REPORT EKG Measurement Heart [id number] <Conclusion> Normal sinus rhythm Nonspecific ST and T wave abnormality Prolonged QT Abnormal ECG
== END 2017-06-07 20:07 | disposition home or self-care (01) ==
LOC: H.ER 14:01
DX: F13.10 Sedative, hypnotic or anxiolytic abuse, uncomplicated (principal); N39.0 Urinary tract infection, site not specified; Z86.59 Personal history of other mental and behavioral disorders; G40.909 Epilepsy, unspecified, not intractable, without status epilepticus; I10 Essential (primary) hypertension; Z88.0 Allergy status to penicillin
CPT/HCPCS: 70450; 71045; 80053; 80320; 80324; 80345; 80346; 80349; 80353; 80358; 80361; 81003; 82948; 83735; 83880; 83992; 84100; 84484; 85025; 93005; 99285; J7040

== ENCOUNTER 2017-06-18 21:55 | Emergency (ER) | payer MEDICAID, OTHER ==
[2017-06-18 21:55] VITALS: BMI 21.1
--- NOTE | 2017-06-18 22:26 | ED PDOC ---
HPI: Back Time Seen by Provider: 06/18/17 22:24 Chief Complaint (Nursing): Back Pain Chief Complaint (Provider): Lumbar Pain and Crisis Consultation History Per: Patient History/Exam Limitations: no limitations Onset/Duration Of Symptoms: Days (2) Current Symptoms Are (Timing): Still Present Quality Of Discomfort: Unable To Describe Previous Symptoms: Back Pain, Chronic Pain Associated Symptoms: None Exacerbating Factor(s): Movement, Standing Additional History Per: Patient - Risk Factors AAA Risk Factors: Pos: Older Than 49 Years Of Age Past Medical History Vital Signs: Last Vital Signs Temp 97 F L 06/18/17 21:58 Pulse 89 06/18/17 21:58 Resp 18 06/18/17 21:58 BP 114/86 06/18/17 21:58 Pulse Ox 100 06/18/17 21:58 - Medical History PMH: Anxiety, Arthritis, Back Problems, Bronchitis, Depression, Fractures (hx of fx R wrist and R side rib 1 mos ago), HTN, Seizures Denies: HIV, Chronic Kidney Disease, Sexually Transmitted Disease - Family History Family History: States: Hypertension - Immunization History Hx Tetanus Toxoid Vaccination: No Hx Influenza Vaccination: No Hx Pneumococcal Vaccination: No - Home Medications Home Medications: Ambulatory Orders Medication Instructions Recorded ALPRAZolam [Xanax] 1 mg PO TID PRN 11/28/15 Zolpidem [Ambien] 10 mg PO HS PRN 11/28/15 Albuterol HFA [Ventolin HFA 90 2 puff IH Q6 #1 inhaler 05/23/16 mcg/actuation (8 g)] Benzonatate [Tessalon Perles] 100 mg PO BID PRN 5 Days sgl 06/29/16 Ibuprofen [Motrin] 600 mg PO TID 7 Days tab 06/29/16 Potassium Chloride [K-Dur 20] 1 tab PO BID #25 tab 07/10/16 Benzonatate [Tessalon Perle] 100 mg PO BID #12 capsule 08/10/16 Acetaminophen [Tylenol 325mg tab] 650 mg PO Q6 #30 tab 11/06/16 Nitrofurantoin Macrocrystals 1 cap PO BID #14 cap 06/07/17 [Macrobid] - Allergies Allergies/Adverse Reactions: Allergies Allergy/AdvReac Type Severity Reaction Status Date / Time Penicillins Allergy unknown Verified 04/11/17 10:18 Review of Systems Musculoskeletal: Positive for: Back Pain Psych: Positive for: Anxiety, Withdrawal, Other (distant speech) Physical Exam - Physical Exam Appears: Positive for: Uncomfortable Back: Positive for: Normal Inspection, Vertebral Tenderness, Decreased ROM Extremity: Positive for: Normal ROM, Capillary Refill. Negative for: Tenderness , Calf Tenderness Neurologic/Psych: Negative for: Oriented, Mood/Affect - ECG O2 Sat by Pulse Oximetry: 100 - Progress ED Course And Treament: Lumbar CT Toradol Apap CBC CMP Alcohol and Drug Screen CXR Medical Decision Making Medical Decision Making: Lumbar pain, r/o acute spinal injury due to pt manner and distant speech affect, she will have a medical clearance crisis consultation Disposition - Clinical Impression Clinical Impression: Chronic pain, Urinary tract infection - Disposition Disposition Time: 00:08 Forms: [employer] (Urdu) Patient Signed Over To: Pretty Lamar PA-C (awaiting: cxr, ct results; labs for med clearance; psych consult)
[2017-06-18 23:19] LABS: SQUAMOUS EPITHIAL 17 /hpf (0-5); URINE BACTERIA OCC (<OCC); URINE BILIRUBIN NEGATIVE (NEGATIVE); URINE BLOOD SMALL (NEGATIVE); URINE CLARITY CLOUDY (Clear); URINE COLOR YELLOW (YELLOW); URINE GLUCOSE (UA) NEG (Normal); URINE LEUKOCYTE ESTERASE LARGE Leu/uL (Negative); URINE PROTEIN NEGATIVE (NEGATIVE); URINE UROBILINOGEN 0.2-1.0 mg/dL (0.2-1.0)
[2017-06-19] MEDS ORDERED: Tmp-Smz 800 mg-160 mg DS Tab PO STA (00:01)
[2017-06-19 00:05] LABS: BASO # 0.1 K/uL (0.0-0.2); EOS # 0.5 K/uL (0.0-0.7); HEMOGLOBIN 11.4 g/dL (12.0-16.0); LYMPH # 4.4 K/uL (1.0-4.3); LYMPH % 56.7 % (20.0-40.0); MEAN CELL VOLUME 84.3 fl (81.0-99.0); MEAN CORPUSCULAR HEMOGLOBIN 27.9 pg (27.0-31.0); MEAN PLATELET VOLUME 8.1 fl (7.2-11.7); MONO # 0.5 K/uL (0.0-0.8); MONO % 5.8 % (0.0-10.0); NEUT # 2.4 K/uL (1.8-7.0); NEUT % 30.5 % (50.0-75.0); NRBC % 0.3 % (0.0-0.0); RBC 4.08 Mil/uL (3.80-5.20); RED CELL DISTRIBUTION WIDTH 14.2 % (11.5-14.5); WHITE BLOOD COUNT 7.8 K/uL (4.8-10.8)
[2017-06-19] MEDS ORDERED: Tmp-Smz 800 mg-160 mg DS Tab ONE (00:14)
--- NOTE | 2017-06-19 00:17 | CT ---
EXAM: CT Lumbar Spine Without Intravenous Contrast CLINICAL HISTORY: 56 years old, female; Pain; Low back pain; Additional info: Lumbar pain followin seizure TECHNIQUE: Axial computed tomography images of the lumbar spine without intravenous contrast. All CT scans at this facility use one or more dose reduction techniques, viz.: automated exposure control; ma/kV adjustment per patient size (including targeted exams where dose is matched to indication; i.e. head); or iterative reconstruction technique. Coronal and sagittal reformatted images were created and reviewed. COMPARISON: CT abdomen and pelvis 05/12/2016 FINDINGS: Vertebrae/discs: Compression deformity involving vertebral bodies throughout the visualized thoracic and lumbar spine. Most severe compression deformity noted at L2 and L3, appearance is similar compared to available prior study dated 05/12/2016. L1 demonstrates evidence of moderate to severe chronic vertebral body compression deformity, however, this is new compared to the prior study. T11 demonstrates mild compression deformity. T12 demonstrates moderate compression deformity, new compared to prior study. L5 demonstrates mild compression deformity. There is associated moderate impression on the central canal due to retropulsion involving fractures L1 and L2. Otherwise, there is more mild impression on the central canal due to retropulsion or degenerative disc disease. Neural foramina narrowing from degenerative disc disease also noted, at least moderate at L1-L2 L2-L3 and L4-L5. IMPRESSION: Compression deformity involving vertebral bodies throughout the visualized thoracic and lumbar spine. Most severe compression deformity noted at L2 and L3, appearance is similar compared to available prior study dated 05/12/2016. T12 and L1 demonstrate compression deformity which does not clearly appear acute but is new compared to prior study. Associated moderate impression on the central canal due to retropulsion involving fractures L1 and L2. Please see additional details/findings as above. MRI can provide more sensitive evaluation. Appearance is abnormal for patient's age. Please correlate clinically.
[2017-06-19 00:33] LABS: ALB/GLOB RATIO 1.1 (1.0-2.1); ALBUMIN 3.6 g/dL (3.5-5.0); ALT/SGPT 24 U/L (9-52); AST/SGOT 24 U/L (14-36); BLOOD UREA NITROGEN 12 mg/dl (7-17); CALCIUM 9.4 mg/dL (8.4-10.2); GFR AFRICAN-AMERICAN > 60; GFR NON-AFRICAN AMERICAN > 60
[2017-06-19 00:34] LABS: BARBITURATES, UR POSITIVE (NEGATIVE); BENZODIAZEPINES, UR POSITIVE (NEGATIVE); OPIATES, UR NEGATIVE (NEGATIVE); PHENCYCLIDINE, UR NEGATIVE (NEGATIVE)
[2017-06-19 03:01] VITALS: TEMP 98.6
--- NOTE | 2017-06-19 03:44 | ED PDOC ---
- Laboratory Results Result Diagrams: 06/18/17 23:55 06/18/17 23:55 - ECG O2 Sat by Pulse Oximetry: 98 (RA) Pulse Ox Interpretation: Normal Medical Decision Making Medical Decision Making: Time: 00:00 Endorsed by ANDREY Nuñez pending CT results, labs, CXR and crisis eval. Pt noted to have UTI. Urine culture sent. Patient given dose of Bactrim. Disposition - Clinical Impression Clinical Impression: Chronic pain, Urinary tract infection - Disposition Forms: [employer] (Estonian)
--- NOTE | 2017-06-19 03:47 | ED PDOC ---
- Laboratory Results Result Diagrams: 06/18/17 23:55 06/18/17 23:55 - ECG O2 Sat by Pulse Oximetry: 98 (RA) Pulse Ox Interpretation: Normal Medical Decision Making Medical Decision Making: Time: 00:00 Endorsed by ANDREY Bird, pending CT results, labs, CXR and crisis eval. Patient noted to have UTI. Urine culture sent. Patient given a dose of Bactrim. Labs reviewed and are wnl. CXR : NAD, as read by ANDREY. EKG : NSR at 81 bpm, no acute St changes, as read by ANDREY. CT L spine : FINDINGS: Vertebrae/discs: Compression deformity involving vertebral bodies throughout the visualized thoracic and lumbar spine. Most severe compression deformity noted at L2 and L3, appearance is similar compared to available prior study dated 05/12/2016. L1 demonstrates evidence of moderate to severe chronic vertebral body compression deformity, however, this is new compared to the prior study. T11 demonstrates mild compression deformity. T12 demonstrates moderate compression deformity, new compared to prior study. L5 demonstrates mild compression deformity. There is associated moderate impression on the central canal due to retropulsion involving fractures L1 and L2. Otherwise, there is more mild impression on the central canal due to retropulsion or degenerative disc disease. Neural foramina narrowing from degenerative disc disease also noted, at least moderate at L1-L2 L2-L3 and L4-L5. IMPRESSION: Compression deformity involving vertebral bodies throughout the visualized thoracic and lumbar spine. Most severe compression deformity noted at L2 and L3, appearance is similar compared to available prior study dated 05/12/2016. T12 and L1 demonstrate compression deformity which does not clearly appear acute but is new compared to prior study. Associated moderate impression on the central canal due to retropulsion involving fractures L1 and L2. Please see additional details/findings as above. MRI can provide more sensitive evaluation. Appearance is abnormal for patient's age. Please correlate clinically. Dictated and Authenticated by: Lindsey Moya MD 06/19/2017 12:17 AM Eastern Time ([place] & [place]) Patient is medically cleared for crisis evaluation. Patient seen and evaluated by crisis. After crisis evaluation, patient will be for outpatient psychiatric f/u as per Dr. Ashton. On re-evaluation, patient is not to be somnolent but is arousable, oriented x3, in no acute distress. Patient states that she has no pain at this time, denies any bowel or bladder incontinence, paresthesia to her legs. She is aware of the multiple spinal fractures, which she states are old and are not new, she adds that she is currently f/u with a doctor, Dr. Small regarding the spinal fractures. Lab and CT results d/w the patient. Patient is able to ambulate in the ER with a steady gait with her walker. Patient instructed to follow-up with pmd, her spine doctor and outpatient psych referral provided by crisis in 1-2 days without fail. Return to the emergency room at any time for any new or worsening symptoms. Patient states she fully agrees with and understands discharge instructions. States that she agrees with the plan and disposition. Verbalized and repeated discharge instructions and plan. I have given the patient opportunity to ask any additional questions. Scribe Attestation: Documented by Patricia Bazan, acting as a scribe for Pretty Lamar PA-C. Provider Scribe Attestation: All medical record entries made by the Scribe were at my direction and personally dictated by me. I have reviewed the chart and agree that the record accurately reflects my personal performance of the history, physical exam, medical decision making, and the department course for this patient. I have also personally directed, reviewed, and agree with the discharge instructions and disposition. Disposition Counseled Patient/Family Regarding: Studies Performed, Diagnosis, Need For Followup, Rx Given - Clinical Impression Clinical Impression: Chronic pain, Urinary tract infection - POA Present On Arrival: None - Disposition Disposition: Routine/Home Disposition Time: 05:00 Condition: STABLE Additional Instructions: Thank you for letting us take care of you today. You were treated for chronic back pain, UTI. The emergency medical care you received today was directed at your acute symptoms. If you were prescribed any medication, please fill it and take as directed. It may take several days for your symptoms to resolve. Return to the Emergency Department if your symptoms worsen, do not improve, or if you have any other problems. Please contact your doctor in 2 days for re-evaluation and follow up / or call one of the physicians/clinics you have been referred to by crisis. Bring any paperwork you were given at discharge with you along with any medications you are taking to your follow up visit. Our treatment cannot replace ongoing medical care by a primary care provider (PCP) outside of the emergency department. Thank you for allowing the [facility] team to be part of your care today. If you had a urine culture test done : We will call you regarding any positive results If you had a CT scan : A Radiologist will review the ED reading if any change in treatment is needed we will contact you. 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
[2017-06-19 06:22] VITALS: BP 115/77; PULSE 88; RESP 20; O2SAT 100
--- NOTE | 2017-06-19 10:12 | RAD ---
HISTORY: crisis COMPARISON: No prior. TECHNIQUE: Chest PA and lateral FINDINGS: LUNGS: No active pulmonary disease. PLEURA: No significant pleural effusion identified. No pneumothorax apparent. CARDIOVASCULAR: Normal. Atherosclerotic aorta. OSSEOUS STRUCTURES: No significant abnormalities. VISUALIZED UPPER ABDOMEN: Normal. OTHER FINDINGS: None. IMPRESSION: No active disease.
--- NOTE | 2017-06-19 10:37 | CARD ---
APPROVED REPORT EKG Measurement Heart [id number] <Conclusion> Normal sinus rhythm Nonspecific ST abnormality Abnormal ECG
== END 2017-06-19 06:21 | disposition home or self-care (01) ==
LOC: H.ER 21:55
DX: N39.0 Urinary tract infection, site not specified (principal); G89.29 Other chronic pain; F32.9 Major depressive disorder, single episode, unspecified; F41.9 Anxiety disorder, unspecified; I10 Essential (primary) hypertension; R56.9 Unspecified convulsions; Z88.0 Allergy status to penicillin
CPT/HCPCS: 71046; 72131; 80053; 80320; 80324; 80345; 80346; 80349; 80353; 80358; 80361; 81003; 82009; 83992; 84600; 85025; 87086; 93005; 96372; 99283; J1885

== ENCOUNTER 2017-07-07 19:39 | Emergency (ER) | payer MEDICAID ==
[2017-07-07 19:39] VITALS: BMI 21.1
[2017-07-07 19:50] VITALS: RESP 16; TEMP 98.6; O2SAT 98
[2017-07-07] MEDS ORDERED: Albuterol-Ipratrop 3 mg / 0.5 (3 ml) UD INH STA (20:29)
[2017-07-07] MEDS ORDERED: Albuterol-Ipratrop 3 mg / 0.5 (3 ml) UD IH STA (20:29)
[2017-07-07] MEDS ORDERED: Sodium Chloride 0.9% 1,000 ML IV SCH (20:30)
--- NOTE | 2017-07-07 21:09 | ED PDOC ---
HPI: CCC, URI, Sore Throat Time Seen by Provider: 07/07/17 20:00 Chief Complaint (Nursing): Shortness Of Breath Chief Complaint (Provider): Cough, congestion, SOB History Per: Patient History/Exam Limitations: no limitations Onset/Duration Of Symptoms: Hrs (today) Current Symptoms Are (Timing): Still Present Associated Symptoms: Cough (productive), Sputum (yellow phlegm), Nasal Congestion, Nausea, Other (runny nose, generalized weakness, body aches, SOB, dizziness). denies: Fever, Chills, Vomiting, Diarrhea Ear Symptoms: Bilateral: None Additional Complaint(s): Radha Harris is a 56 year old female, with a past medical history of bronchitis, who presents to the emergency department complaining of productive cough with yellow phlegm, runny nose, congestion, shortness of breath, chest pain w/ cough, dizziness, nausea, body aches, and generalized weakness onset since today. She denies any fever, chills, vomiting, diarrhea, numbness or tingling. No further medical complaints. PMD: None provided. Past Medical History Reviewed: Historical Data, Nursing Documentation, Vital Signs Vital Signs: Last Vital Signs Temp 98.6 F 07/07/17 19:47 Pulse 91 H 07/07/17 19:47 Resp 16 07/07/17 19:47 BP 117/77 07/07/17 19:47 Pulse Ox 98 07/07/17 21:18 - Medical History PMH: Anxiety, Arthritis, Back Problems, Bronchitis, Depression, Fractures (hx of fx R wrist and R side rib 1 mos ago), HTN, Seizures Denies: Diabetes, Hepatitis, HIV, Chronic Kidney Disease, Sexually Transmitted Disease - Surgical History Surgical History: No Surg Hx - Family History Family History: States: Hypertension - Living Arrangements Living Arrangements: Other (homeless) - Immunization History Hx Tetanus Toxoid Vaccination: No Hx Influenza Vaccination: No Hx Pneumococcal Vaccination: No - Home Medications Home Medications: Ambulatory Orders Medication Instructions Recorded ALPRAZolam [Xanax] 1 mg PO TID PRN 11/28/15 Zolpidem [Ambien] 10 mg PO HS PRN 11/28/15 Albuterol HFA [Ventolin HFA 90 2 puff IH Q6 #1 inhaler 05/23/16 mcg/actuation (8 g)] Benzonatate [Tessalon Perles] 100 mg PO BID PRN 5 Days sgl 06/29/16 Ibuprofen [Motrin] 600 mg PO TID 7 Days tab 06/29/16 Potassium Chloride [K-Dur 20] 1 tab PO BID #25 tab 07/10/16 Benzonatate [Tessalon Perle] 100 mg PO BID #12 capsule 08/10/16 Acetaminophen [Tylenol 325mg tab] 650 mg PO Q6 #30 tab 11/06/16 Nitrofurantoin Macrocrystals 1 cap PO BID #14 cap 06/07/17 [Macrobid] Sulfamethoxazole/Trimethoprim 1 tab PO BID #14 tab 06/19/17 [Bactrim DS 800 mg-160 mg] Albuterol Sulfate [Proair Hfa] 0.09 mg IH Q6H PRN #2 inh 07/07/17 Oseltamivir Phosphate [Tamiflu] 75 mg PO BID 5 Days capsule 07/07/17 predniSONE [predniSONE Tab] 20 mg PO BID 5 Days tab 07/07/17 - Allergies Allergies/Adverse Reactions: Allergies Allergy/AdvReac Type Severity Reaction Status Date / Time Penicillins Allergy unknown Verified 04/11/17 10:18 Review of Systems ROS Statement: Except As Marked, All Systems Reviewed And Found Negative Constitutional: Positive for: Weakness (generalized), Other (body aches). Negative for: Fever, Chills ENT: Positive for: Nose Discharge, Nose Congestion Cardiovascular: Positive for: Chest Pain (w/ cough only) Respiratory: Positive for: Cough (productive), Shortness of Breath, Sputum ( yellow phlegm) Gastrointestinal: Positive for: Nausea. Negative for: Vomiting, Diarrhea Neurological: Positive for: Weakness, Dizziness. Negative for: Numbness (or tingling) Physical Exam - Reviewed Nursing Documentation Reviewed: Yes Vital Signs Reviewed: Yes - Physical Exam Appears: Positive for: Non-toxic Head Exam: Positive for: ATRAUMATIC, NORMAL INSPECTION, NORMOCEPHALIC Skin: Positive for: Normal Color, Warm, Dry Eye Exam: Positive for: Normal appearance, EOMI, PERRL ENT: Positive for: Nasal Congestion. Negative for: Pharyngeal Erythema Neck: Positive for: Painless ROM, Supple Cardiovascular/Chest: Positive for: Regular Rate, Rhythm. Negative for: Murmur Respiratory: Positive for: Decreased Breath Sounds, Wheezing (b/l expiratory) Gastrointestinal/Abdominal: Positive for: Normal Exam, Soft. Negative for: Tenderness Back: Positive for: Normal Inspection. Negative for: L CVA Tenderness, R CVA Tenderness, Vertebral Tenderness Extremity: Positive for: Normal ROM. Negative for: Tenderness, Deformity, Swelling Neurologic/Psych: Positive for: Alert, Oriented. Negative for: Motor/Sensory Deficits - Laboratory Results Result Diagrams: 07/07/17 21:15 07/07/17 21:15 Interpretation Of Abn Labs: no acute - ECG ECG: Positive for: Interpreted By Me, Viewed By Me ECG Rhythm: Positive for: Normal QRS, Normal ST Segment O2 Sat by Pulse Oximetry: 98 (RA) Pulse Ox Interpretation: Normal - Radiology X-Ray: Interpreted by Me, Viewed By Me X-Ray Interpretation: No Acute Disease - Progress ED Course And Treament: 2328: Stable. AAOx3. Pain free. Tolerated po. Bronchitis and possible flu despite flu neg. Will rx tamiflu. No dyspnea or wheezes. Medical Decision Making Medical Decision Making: Initial Impression: Initial Plan: --ABG Shock Panel --EKG --B-Type Natriuretic Peptide --CMP --Magnesium --Phosphorus --Troponin I --CBC w/ differential --PTT --PT --Chest Portable [RAD] --Tylenol 325mg tab 975 mg PO --Duoneb 3 ml INH --Duoneb 3 ml INH --SOLU-medrol 125 mg IVP --Sodium Chloride 1,000 ml IV 500 mls/hr --Blood culture --Peak flow pre/post Tx --Influenza A B --Reevaluation Scribe Attestation: Documented by Ronaldo Alcala, acting as a scribe for Brett Perez MD Provider Scribe Attestation: All medical record entries made by the Scribe were at my direction and personally dictated by me. I have reviewed the chart and agree that the record accurately reflects my personal performance of the history, physical exam, medical decision making, and the department course for this patient. I have also personally directed, reviewed, and agree with the discharge instructions and disposition. Disposition - Clinical Impression Clinical Impression: Bronchitis, Flu-like symptoms - Patient ED Disposition Is Patient to be Admitted: No Counseled Patient/Family Regarding: Studies Performed, Diagnosis, Need For Followup, Rx Given - Disposition Referrals: [facility] [Outside] - 07/08/17 Disposition: Routine/Home Disposition Time: 23:31 Condition: FAIR Additional Instructions: Return if not better in 3 days. Prescriptions: Albuterol Sulfate [Proair Hfa] 0.09 mg IH Q6H PRN #2 inh PRN Reason: Wheezing Oseltamivir Phosphate [Tamiflu] 75 mg PO BID 5 Days capsule predniSONE [predniSONE Tab] 20 mg PO BID 5 Days tab Instructions: Acute Bronchitis, Flu
[2017-07-07 21:20] LABS: ABG ALLEN TEST YES; ARTERIAL BLOOD GAS HCO3 27.3 mmol/L (21-28); ARTERIAL BLOOD GAS O2 SAT 95.9 % (95-98); ARTERIAL BLOOD GAS PCO2 37 mm/Hg (35-45); ARTERIAL BLOOD GAS PH 7.47 (7.35-7.45); ARTERIAL BLOOD GAS PO2 64 mm/Hg (80-100)
[2017-07-07 21:36] LABS: BASO # 0.1 K/uL (0.0-0.2); BASO % 1.1 % (0.0-2.0); EOS # 0.4 K/uL (0.0-0.7); EOS % 5.4 % (0.0-4.0); HEMOGLOBIN 11.4 g/dL (12.0-16.0); LYMPH # 2.3 K/uL (1.0-4.3); LYMPH % 32.1 % (20.0-40.0); MEAN CELL VOLUME 84.2 fl (81.0-99.0); MEAN CORPUSCULAR HEMOGLOBIN 28.1 pg (27.0-31.0); MEAN CORPUSCULAR HGB CONC 33.3 g/dL (33.0-37.0); MEAN PLATELET VOLUME 8.2 fl (7.2-11.7); MONO # 1.1 K/uL (0.0-0.8); NEUT # 3.3 K/uL (1.8-7.0); NEUT % 46.4 % (50.0-75.0); RBC 4.07 Mil/uL (3.80-5.20); RED CELL DISTRIBUTION WIDTH 14.5 % (11.5-14.5); WHITE BLOOD COUNT 7.1 K/uL (4.8-10.8)
[2017-07-07 21:45] LABS: ALB/GLOB RATIO 1.1 (1.0-2.1); ALBUMIN 4.1 g/dL (3.5-5.0); ALT/SGPT 22 U/L (9-52); AST/SGOT 25 U/L (14-36); BLOOD UREA NITROGEN 15 mg/dl (7-17); CALCIUM 9.8 mg/dL (8.4-10.2); GFR AFRICAN-AMERICAN > 60; GFR NON-AFRICAN AMERICAN > 60
[2017-07-07 21:49] LABS: PARTIAL THROMBOPLASTIN TIME 30.9 Seconds (25.6-37.1); PROTHROMBIN TIME 10.9 Seconds (9.8-13.1)
[2017-07-07 21:52] LABS: B-TYPE NATRIURETIC PEPTIDE 11.5 pg/ml (0-900)
[2017-07-07] MEDS ORDERED: Albuterol-Ipratrop 3 mg / 0.5 (3 ml) UD ONE (22:21)
[2017-07-08 00:12] VITALS: BP 136/79; PULSE 85
--- NOTE | 2017-07-08 09:05 | RAD ---
HISTORY: Sepsis Patient COMPARISON: Chest radiograph dated 06/19/2017. FINDINGS: LUNGS: No active pulmonary disease. PLEURA: No significant pleural effusion identified, no pneumothorax apparent. CARDIOVASCULAR: Cardiomediastinal silhouette stably prominent. OSSEOUS STRUCTURES: Unchanged. VISUALIZED UPPER ABDOMEN: Normal. OTHER FINDINGS: None. IMPRESSION: No active disease.
--- NOTE | 2017-07-08 20:30 | CARD ---
APPROVED REPORT EKG Measurement Heart [id number] <Conclusion> Normal sinus rhythm Normal ECG
== END 2017-07-08 00:20 | disposition home or self-care (01) ==
LOC: H.ER 19:39
DX: J11.1 Influenza due to unidentified influenza virus with other respiratory manifestations (principal); J40 Bronchitis, not specified as acute or chronic; I10 Essential (primary) hypertension; F32.9 Major depressive disorder, single episode, unspecified; F41.9 Anxiety disorder, unspecified; Z88.0 Allergy status to penicillin
CPT/HCPCS: 36600; 71045; 80053; 82803; 83735; 83880; 84100; 84484; 85025; 85610; 85730; 87040; 87804; 93005; 94640; 96361; 96374; 99283; J2930; J7040

== ENCOUNTER 2017-07-08 16:24 | Emergency (ER) | payer MEDICAID ==
[2017-07-08 16:24] VITALS: BMI 21.1
[2017-07-08 16:28] VITALS: TEMP 97.2
[2017-07-08] MEDS ORDERED: Albuterol 0.083% Inhal Sol (2.5 mg/3 mL) UD INH STA (17:03)
--- NOTE | 2017-07-08 17:08 | ED PDOC ---
HPI: CCC, URI, Sore Throat Time Seen by Provider: 07/08/17 16:37 Chief Complaint (Nursing): Cough, Cold, Congestion History Per: Patient History/Exam Limitations: no limitations Onset/Duration Of Symptoms: Days (3), Gradual Current Symptoms Are (Timing): Still Present Associated Symptoms: Cough. denies: Fever, Chills, Sore Throat, Sputum, Neck Pain, Myalgias, Nasal Congestion, Nausea, Vomiting, Diarrhea Severity: Mild Additional History Per: Patient Additional Complaint(s): pt seen here yesterday had exhaustive and nml workup, did not fill prescriptions , states worsening cough, sent over here from homeless [facility] Past Medical History Reviewed: Historical Data, Nursing Documentation, Vital Signs Vital Signs: Last Vital Signs Temp 97.2 F L 07/08/17 16:25 Pulse 103 H 07/08/17 16:25 Resp 16 07/08/17 16:25 BP 147/94 H 07/08/17 16:25 Pulse Ox 99 07/08/17 17:52 - Medical History PMH: Anxiety, Arthritis, Back Problems, Bronchitis, Depression, Fractures (hx of fx R wrist and R side rib 1 mos ago), HTN, Seizures Denies: Diabetes, Hepatitis, HIV, Chronic Kidney Disease, Sexually Transmitted Disease - Family History Family History: States: Unknown Family Hx, Hypertension - Living Arrangements Living Arrangements: With Friends/Others - Social History Current smoker - smoking cessation education provided: No - Immunization History Hx Tetanus Toxoid Vaccination: No Hx Influenza Vaccination: No Hx Pneumococcal Vaccination: No - Home Medications Home Medications: Ambulatory Orders Medication Instructions Recorded ALPRAZolam [Xanax] 1 mg PO TID PRN 11/28/15 Zolpidem [Ambien] 10 mg PO HS PRN 11/28/15 Albuterol HFA [Ventolin HFA 90 2 puff IH Q6 #1 inhaler 05/23/16 mcg/actuation (8 g)] Benzonatate [Tessalon Perles] 100 mg PO BID PRN 5 Days sgl 06/29/16 Ibuprofen [Motrin] 600 mg PO TID 7 Days tab 06/29/16 Potassium Chloride [K-Dur 20] 1 tab PO BID #25 tab 07/10/16 Benzonatate [Tessalon Perle] 100 mg PO BID #12 capsule 08/10/16 Acetaminophen [Tylenol 325mg tab] 650 mg PO Q6 #30 tab 11/06/16 Nitrofurantoin Macrocrystals 1 cap PO BID #14 cap 06/07/17 [Macrobid] Sulfamethoxazole/Trimethoprim 1 tab PO BID #14 tab 06/19/17 [Bactrim DS 800 mg-160 mg] Albuterol Sulfate [Proair Hfa] 0.09 mg IH Q6H PRN #2 inh 07/07/17 Oseltamivir Phosphate [Tamiflu] 75 mg PO BID 5 Days capsule 07/07/17 predniSONE [predniSONE Tab] 20 mg PO BID 5 Days tab 07/07/17 Albuterol HFA [Ventolin HFA 90 2 puff IH [id number] #60 puff 07/08/17 mcg/actuation (8 g)] Azithromycin 250 mg PO DAILY 3 Days #3 tablet 07/08/17 Methylprednisolone [Medrol Dose 4 mg PO DAILY #21 mg 07/08/17 Pack (21 tabs)] - Allergies Allergies/Adverse Reactions: Allergies Allergy/AdvReac Type Severity Reaction Status Date / Time Penicillins Allergy unknown Verified 04/11/17 10:18 Review of Systems ROS Statement: Except As Marked, All Systems Reviewed And Found Negative Constitutional: Negative for: Fever, Chills Cardiovascular: Negative for: Chest Pain, Palpitations Respiratory: Positive for: Cough. Negative for: Shortness of Breath, Sputum Gastrointestinal: Negative for: Nausea, Vomiting, Abdominal Pain, Diarrhea Physical Exam - Reviewed Nursing Documentation Reviewed: Yes Vital Signs Reviewed: Yes - Physical Exam Appears: Positive for: Uncomfortable Head Exam: Positive for: ATRAUMATIC, NORMAL INSPECTION, NORMOCEPHALIC Eye Exam: Positive for: Normal appearance, EOMI, PERRL Neck: Positive for: Normal, Painless ROM, Supple Cardiovascular/Chest: Positive for: Regular Rate, Rhythm, Chest Non Tender. Negative for: Edema, Gallop, Murmur, Bradycardia, Tachycardia Respiratory: Positive for: Normal Breath Sounds. Negative for: Decreased Breath Sounds, Accessory Muscle Use, Crackles, Rales, Rhonchi, Stridor, Wheezing , Respiratory Distress Pulses-Radial (L): 2+ Pulses-Radial (R): 2+ Gastrointestinal/Abdominal: Positive for: Normal Exam, Bowel Sounds, Soft. Negative for: Tenderness Back: Positive for: Normal Inspection. Negative for: L CVA Tenderness, R CVA Tenderness Extremity: Positive for: Normal ROM. Negative for: Tenderness, Pedal Edema, Calf Tenderness, Capillary Refill, Deformity, Swelling Neurologic/Psych: Positive for: Alert, dialysis nurse II-XII, Oriented. Negative for: Motor/Sensory Deficits - ECG ECG: Positive for: Interpreted By Me ECG Rhythm: Positive for: Normal QRS, Normal ST Segment, Sinus Rhythm (rate of 95). Negative for: ST/T Changes O2 Sat by Pulse Oximetry: 99 Pulse Ox Interpretation: Normal - Radiology X-Ray: Interpreted by Me X-Ray Interpretation: No Acute Disease - Progress ED Course And Treament: pt feels better, advise to continue treatment, pt agree's with plan and leaves ambulatory and in good spirits. Re-evaluation Time: 17:49 Condition: Re-examined, Improved Disposition - Clinical Impression Clinical Impression: Bronchitis - Patient ED Disposition Is Patient to be Admitted: No Counseled Patient/Family Regarding: Studies Performed, Diagnosis, Need For Followup, Rx Given - Disposition Referrals: [facility] [Outside] (2 to 3 days) Disposition: Routine/Home Disposition Time: 17:50 Condition: GOOD Prescriptions: Albuterol HFA [Ventolin HFA 90 mcg/actuation (8 g)] 2 puff IH [id number] #60 puff Azithromycin 250 mg PO DAILY 3 Days #3 tablet Methylprednisolone [Medrol Dose Pack (21 tabs)] 4 mg PO DAILY #21 mg Instructions: Acute Bronchitis Forms: [employer] (Palestinian), [facility] ED School/Work Excuse
[2017-07-08] MEDS ORDERED: Albuterol 0.083% Inhal Sol (2.5 mg/3 mL) UD ONE (17:54)
--- NOTE | 2017-07-08 17:57 | RAD ---
HISTORY: cough COMPARISON: 07/07/2017 FINDINGS: LUNGS: No active pulmonary disease. PLEURA: No significant pleural effusion identified, no pneumothorax apparent. CARDIOVASCULAR: Normal. OSSEOUS STRUCTURES: No significant abnormalities. VISUALIZED UPPER ABDOMEN: Normal. OTHER FINDINGS: None. IMPRESSION: No active disease.
[2017-07-08 19:04] VITALS: BP 146/84; PULSE 87; RESP 18; O2SAT 100
== END 2017-07-08 19:04 | disposition home or self-care (01) ==
LOC: H.ER 16:24
DX: J40 Bronchitis, not specified as acute or chronic (principal); F32.9 Major depressive disorder, single episode, unspecified; F41.9 Anxiety disorder, unspecified; I10 Essential (primary) hypertension; Z88.0 Allergy status to penicillin

== ENCOUNTER 2017-07-08 19:40 | Emergency (ER) | payer MEDICAID ==
[2017-07-08 19:40] VITALS: BMI 21.1
[2017-07-08 19:54] VITALS: BP 113/80; PULSE 100; RESP 18; TEMP 98; O2SAT 95
--- NOTE | 2017-07-08 20:14 | ED PDOC ---
HPI: CCC, URI, Sore Throat Time Seen by Provider: 07/08/17 19:57 Chief Complaint (Nursing): Dizziness/Lightheaded Chief Complaint (Provider): dizziness History Per: Patient Additional Complaint(s): Pt reporting dizziness and fatigue. Was just seen in the ER and discharged just prior to signing up again. She is requesting a bed to lie down until she isn't dizzy anymore. She is homeless and has nowhere to go but the [facility]. Report by RN that she had reported taking her klonopin just prior to arrival and that an hour ago, during last visit, found to masturbating in the room using tube from urinalysis container. Pt denies this. Reports she was just dizzy and was on the ground because she was going to fall down. PMD Dr Tomlin Past Medical History Reviewed: Historical Data, Nursing Documentation, Vital Signs Vital Signs: Last Vital Signs Temp 98 F 07/08/17 19:50 Pulse 100 H 07/08/17 19:50 Resp 18 07/08/17 19:50 BP 113/80 07/08/17 19:50 Pulse Ox 95 07/08/17 20:18 - Medical History PMH: Anxiety, Arthritis, Back Problems, Bronchitis, Depression, Fractures (hx of fx R wrist and R side rib 1 mos ago), HTN, Seizures Denies: Diabetes, Hepatitis, HIV, Chronic Kidney Disease, Sexually Transmitted Disease - Family History Family History: States: Hypertension - Social History Drugs: Denies - Immunization History Hx Tetanus Toxoid Vaccination: No Hx Influenza Vaccination: No Hx Pneumococcal Vaccination: No - Home Medications Home Medications: Ambulatory Orders Medication Instructions Recorded ALPRAZolam [Xanax] 1 mg PO TID PRN 11/28/15 Zolpidem [Ambien] 10 mg PO HS PRN 11/28/15 Albuterol HFA [Ventolin HFA 90 2 puff IH Q6 #1 inhaler 05/23/16 mcg/actuation (8 g)] Benzonatate [Tessalon Perles] 100 mg PO BID PRN 5 Days sgl 06/29/16 Ibuprofen [Motrin] 600 mg PO TID 7 Days tab 06/29/16 Potassium Chloride [K-Dur 20] 1 tab PO BID #25 tab 07/10/16 Benzonatate [Tessalon Perle] 100 mg PO BID #12 capsule 08/10/16 Acetaminophen [Tylenol 325mg tab] 650 mg PO Q6 #30 tab 11/06/16 Nitrofurantoin Macrocrystals 1 cap PO BID #14 cap 06/07/17 [Macrobid] Sulfamethoxazole/Trimethoprim 1 tab PO BID #14 tab 06/19/17 [Bactrim DS 800 mg-160 mg] Albuterol Sulfate [Proair Hfa] 0.09 mg IH Q6H PRN #2 inh 07/07/17 Oseltamivir Phosphate [Tamiflu] 75 mg PO BID 5 Days capsule 07/07/17 predniSONE [predniSONE Tab] 20 mg PO BID 5 Days tab 07/07/17 Albuterol HFA [Ventolin HFA 90 2 puff IH [id number] #60 puff 07/08/17 mcg/actuation (8 g)] Azithromycin 250 mg PO DAILY 3 Days #3 tablet 07/08/17 Meclizine HCl 25 mg PO QID #30 tablet 07/08/17 Methylprednisolone [Medrol Dose 4 mg PO DAILY #21 mg 07/08/17 Pack (21 tabs)] - Allergies Allergies/Adverse Reactions: Allergies Allergy/AdvReac Type Severity Reaction Status Date / Time Penicillins Allergy unknown Verified 07/08/17 19:48 Review of Systems ROS Statement: Except As Marked, All Systems Reviewed And Found Negative (and as per HPI) Constitutional: Positive for: Weakness, Malaise Respiratory: Positive for: Cough, Shortness of Breath, Wheezing Neurological: Positive for: Weakness, Dizziness (nonvertiginous) Physical Exam - Reviewed Nursing Documentation Reviewed: Yes Vital Signs Reviewed: Yes - Physical Exam Appears: Positive for: Non-toxic, No Acute Distress Head Exam: Positive for: ATRAUMATIC, NORMOCEPHALIC Skin: Positive for: Warm, Dry Eye Exam: Positive for: EOMI, PERRL ENT: Negative for: Pharyngeal Erythema, Tonsillar Exudate Neck: Positive for: Painless ROM, Supple Cardiovascular/Chest: Positive for: Regular Rate, Rhythm, Chest Non Tender Respiratory: Positive for: Wheezing (scattered). Negative for: Rales, Rhonchi, Stridor, Respiratory Distress Gastrointestinal/Abdominal: Positive for: Soft. Negative for: Tenderness Back: Positive for: Normal Inspection. Negative for: Decreased ROM Extremity: Positive for: Normal ROM. Negative for: Deformity Lymphatic: Negative for: Adenopathy Neurologic/Psych: Positive for: Alert. Negative for: Motor/Sensory Deficits - ECG O2 Sat by Pulse Oximetry: 95 - Progress ED Course And Treament: Reviewed previous visits. Pt has h/o substance abuse, but also treated as bronchitis just yesterday. Tachycardia on arrival resolved, but pt also has history of elevated HR from previous charts. STrongly suspect malingering and advised to f/u with PMD. Disposition - Clinical Impression Clinical Impression: Dizziness, Homeless, Bronchitis Discussed With Dr.: Geovanny Tomlin Comment: Known well to his practice. Just seen this week requesting anxiety and sleep medications. Will follow up next week. - Disposition Referrals: Geovanny Tomlin MD [Family Provider] - 07/11/17 Disposition: Routine/Home Disposition Time: 20:00 Condition: GOOD Additional Instructions: DRINK PLENTY OF HYDRATING FLUIDS AND REST FOLLOW UP WITH YOUR PMD TUESDAY FOR FURTHER EVALUATION Prescriptions: Meclizine HCl 25 mg PO QID #30 tablet Instructions: Acute Bronchitis, Dizziness, Nonvertigo, (DC) Forms: [employer] (Slovenian)
[2017-07-08] MEDS ORDERED: Albuterol 0.083% Inhal Sol (2.5 mg/3 mL) UD ONE (20:22)
[2017-07-08] MEDS ORDERED: Albuterol HFA 90 mcg/actuation (8 g) INH ONE (20:30)
[2017-07-08] MEDS ORDERED: Albuterol 0.083% Inhal Sol (2.5 mg/3 mL) UD IH STA (20:52)
== END 2017-07-08 20:55 | disposition home or self-care (01) ==
LOC: H.ER 19:40
DX: R42 Dizziness and giddiness (principal); J40 Bronchitis, not specified as acute or chronic; Z59.0 Homelessness; F32.9 Major depressive disorder, single episode, unspecified; F41.9 Anxiety disorder, unspecified; I10 Essential (primary) hypertension; Z88.0 Allergy status to penicillin

== ENCOUNTER 2017-08-03 22:59 | Emergency (ER) | payer MEDICAID ==
[2017-08-03 23:00] VITALS: BMI 21.1
--- NOTE | 2017-08-04 01:41 | ED PDOC ---
HPI: Psych/Substance Abuse Time Seen by Provider: 08/03/17 23:33 Chief Complaint (Nursing): Substance Abuse Chief Complaint (Provider): Substance Abuse History Per: Patient, EMS History/Exam Limitations: no limitations Suicide/Self Injury Attempted (Context): None Additional Complaint(s): 56 year old female brought in by EMS presents to ED due to possible drug ingestion, is well known to ED, and has a past medical history of HTN and depression. EMS states patient was in the [place] with a cohabitant's empty Fioricet bottle. It is unclear if the bottle was initially filled with fioricet, how much the patient ingested, or if the bottle was empty to begin with. Patient herself denies drug abuse or alcohol ingestion. Denies any complaints at this time. Of note, as patient converses with provider she is falling asleep. PCP: Non [facility] provider Past Medical History Reviewed: Historical Data, Nursing Documentation, Vital Signs Vital Signs: Last Vital Signs Temp 97.5 F L 08/03/17 23:06 Pulse 96 H 08/03/17 23:52 Resp 18 08/03/17 23:52 BP 128/71 08/03/17 23:52 Pulse Ox 99 08/03/17 23:52 - Medical History PMH: Anxiety, Arthritis, Back Problems, Bronchitis, Depression, Fractures (Rib & wrist), Gall Bladder Disease (Cholecystitis), HTN, Seizures Denies: Diabetes, Hepatitis, HIV, Chronic Kidney Disease, Sexually Transmitted Disease - Family History Family History: States: Unknown Family Hx, Hypertension - Living Arrangements Living Arrangements: Other ([facility]) - Social History Drugs: Denies - Immunization History Hx Tetanus Toxoid Vaccination: No Hx Influenza Vaccination: No Hx Pneumococcal Vaccination: No - Home Medications Home Medications: Ambulatory Orders Medication Instructions Recorded ALPRAZolam [Xanax] 1 mg PO TID PRN 11/28/15 Zolpidem [Ambien] 10 mg PO HS PRN 11/28/15 Albuterol HFA [Ventolin HFA 90 2 puff IH Q6 #1 inhaler 05/23/16 mcg/actuation (8 g)] Benzonatate [Tessalon Perles] 100 mg PO BID PRN 5 Days sgl 06/29/16 Ibuprofen [Motrin] 600 mg PO TID 7 Days tab 06/29/16 Potassium Chloride [K-Dur 20] 1 tab PO BID #25 tab 07/10/16 Benzonatate [Tessalon Perle] 100 mg PO BID #12 capsule 08/10/16 Acetaminophen [Tylenol 325mg tab] 650 mg PO Q6 #30 tab 11/06/16 Nitrofurantoin Macrocrystals 1 cap PO BID #14 cap 06/07/17 [Macrobid] Sulfamethoxazole/Trimethoprim 1 tab PO BID #14 tab 06/19/17 [Bactrim DS 800 mg-160 mg] Albuterol Sulfate [Proair Hfa] 0.09 mg IH Q6H PRN #2 inh 07/07/17 Oseltamivir Phosphate [Tamiflu] 75 mg PO BID 5 Days capsule 07/07/17 predniSONE [predniSONE Tab] 20 mg PO BID 5 Days tab 07/07/17 Albuterol HFA [Ventolin HFA 90 2 puff IH [id number] #60 puff 07/08/17 mcg/actuation (8 g)] Azithromycin 250 mg PO DAILY 3 Days #3 tablet 07/08/17 Meclizine HCl 25 mg PO QID #30 tablet 07/08/17 Methylprednisolone [Medrol Dose 4 mg PO DAILY #21 mg 07/08/17 Pack (21 tabs)] - Allergies Allergies/Adverse Reactions: Allergies Allergy/AdvReac Type Severity Reaction Status Date / Time Penicillins Allergy unknown Verified 07/08/17 19:48 Review of Systems ROS Statement: Except As Marked, All Systems Reviewed And Found Negative ( Denies any complaints) Physical Exam - Reviewed Nursing Documentation Reviewed: Yes Vital Signs Reviewed: Yes - Physical Exam Appears: Positive for: Non-toxic, No Acute Distress Skin: Positive for: Normal Color, Warm, Dry Eye Exam: Positive for: Normal appearance, EOMI, PERRL Cardiovascular/Chest: Positive for: Regular Rate, Rhythm. Negative for: Bradycardia Respiratory: Positive for: Normal Breath Sounds. Negative for: Respiratory Distress Gastrointestinal/Abdominal: Positive for: Normal Exam, Soft. Negative for: Tenderness Neurologic/Psych: Negative for: Alert (patient is falling asleep during physical exam, but is arousable to physical stimuli), Motor/Sensory Deficits - Laboratory Results Result Diagrams: 08/04/17 01:43 08/04/17 01:43 - ECG O2 Sat by Pulse Oximetry: 99 (RA) Pulse Ox Interpretation: Normal Medical Decision Making Medical Decision Makin Initial impression: possible drug overdose Initial plan: * Acetaminophen * EtOH serum * Labs * UDrug screen * UA As vitals are stable and patient appears well, no reversal agent is needed at this time. Will monitor patient's condition and re-eval. 0100 Patient is resting comfortably in the ED. Vitals are stable. 0230 Patient is resting comfortably in the ED. Vitals are stable. 0400 Patient is resting comfortably in the ED. Vitals are stable. 0500 Patient is resting comfortably in the ED. Vitals are stable. 0630 Patient is now awake, alert, states she was drowsy before because she had taken a sleeping pill, but no other medication. Patient requesting APAP for "pain". Patient well appearing and stable for discharge. ~ Scribe Attestation: Documented by Lisa Danielle, acting as a scribe for Alfa Boudreaux MD. Provider Scribe Attestation: All medical record entries made by the Scribe were at my direction and personally dictated by me. I have reviewed the chart and agree that the record accurately reflects my personal performance of the history, physical exam, medical decision making, and the department course for this patient. I have also personally directed, reviewed, and agree with the discharge instructions and disposition. Disposition - Clinical Impression Clinical Impression: Substance abuse - Patient ED Disposition Is Patient to be Admitted: No - Disposition Referrals: [facility] [Outside] [facility] [Outside] Disposition: Routine/Home Disposition Time: 06:26 Condition: STABLE Instructions: Drug Abuse and Drug Addiction (DC) Forms: [employer] (Nicaraguan)
[2017-08-04 01:48] LABS: URINE BILIRUBIN NEGATIVE (NEGATIVE); URINE BLOOD SMALL (NEGATIVE); URINE CLARITY CLEAR (Clear); URINE COLOR STRAW (YELLOW); URINE GLUCOSE (UA) NEG (Normal); URINE LEUKOCYTE ESTERASE NEG Leu/uL (Negative); URINE PROTEIN NEGATIVE (NEGATIVE); URINE UROBILINOGEN 0.2-1.0 mg/dL (0.2-1.0)
[2017-08-04 01:56] LABS: BASO # 0.1 K/uL (0.0-0.2); BASO % 1.1 % (0.0-2.0); EOS # 0.5 K/uL (0.0-0.7); EOS % 5.4 % (0.0-4.0); HEMOGLOBIN 12.5 g/dL (12.0-16.0); LYMPH # 3.9 K/uL (1.0-4.3); LYMPH % 42.6 % (20.0-40.0); MEAN CELL VOLUME 83.3 fl (81.0-99.0); MEAN CORPUSCULAR HEMOGLOBIN 27.7 pg (27.0-31.0); MEAN CORPUSCULAR HGB CONC 33.2 g/dL (33.0-37.0); MONO # 0.8 K/uL (0.0-0.8); MONO % 8.4 % (0.0-10.0); NEUT # 3.9 K/uL (1.8-7.0); NEUT % 42.5 % (50.0-75.0); NRBC % 0.1 % (0.0-0.0); RBC 4.5 Mil/uL (3.80-5.20); RED CELL DISTRIBUTION WIDTH 14.8 % (11.5-14.5); WHITE BLOOD COUNT 9.2 K/uL (4.8-10.8)
[2017-08-04 01:59] LABS: ACETAMINOPHEN < 10.0 ug/ml (10.0-30.0); SALICYLATE < 1.0 mg/dl
[2017-08-04 02:06] LABS: BARBITURATES, UR NEGATIVE (NEGATIVE); BENZODIAZEPINES, UR NEGATIVE (NEGATIVE); OPIATES, UR NEGATIVE (NEGATIVE); PHENCYCLIDINE, UR NEGATIVE (NEGATIVE)
[2017-08-04 02:07] LABS: BLOOD UREA NITROGEN 11 mg/dl (7-17); CALCIUM 9.3 mg/dL (8.4-10.2); GFR AFRICAN-AMERICAN > 60; GFR NON-AFRICAN AMERICAN > 60
--- NOTE | 2017-08-04 06:00 | CT ---
EXAM: CT Head Without Intravenous Contrast CLINICAL HISTORY: 56 years old, female; Signs and symptoms; Altered mental status/memory loss TECHNIQUE: Axial computed tomography images of the head/brain without intravenous contrast. All CT scans at this facility use one or more dose reduction techniques, viz.: automated exposure control; ma/kV adjustment per patient size (including targeted exams where dose is matched to indication; i.e. head); or iterative reconstruction technique. Coronal and sagittal reformatted images were created and reviewed. COMPARISON: CT - HEAD W/O CONTRAST 2017-06-07 15:59 FINDINGS: Brain: There is mild diffuse cerebral atrophy present, consistent with this patient's age. No hemorrhage. No significant white matter disease. No edema. Ventricles: Unremarkable. No ventriculomegaly. Bones/joints: Unremarkable. No acute fracture. Soft tissues: Unremarkable. Sinuses: Unremarkable as visualized. No acute sinusitis. Mastoid air cells: Unremarkable as visualized. No mastoid effusion. IMPRESSION: No evidence of an acute intracranial abnormality.
[2017-08-04 07:19] VITALS: BP 136/62; PULSE 84; RESP 17; TEMP 98.1; O2SAT 98
== END 2017-08-04 07:19 | disposition home or self-care (01) ==
LOC: H.ER 22:59
DX: F19.10 Other psychoactive substance abuse, uncomplicated (principal); F32.9 Major depressive disorder, single episode, unspecified; F41.9 Anxiety disorder, unspecified; I10 Essential (primary) hypertension; Z88.0 Allergy status to penicillin

== ENCOUNTER 2017-12-01 21:47 | Emergency (ER) | payer MEDICAID ==
[2017-12-01 21:47] VITALS: BMI 21.1
[2017-12-01] MEDS ORDERED: Sodium Chloride 0.9% 1,000 ML IV STA (22:32)
--- NOTE | 2017-12-01 22:42 | ED PDOC ---
HPI: Psych/Substance Abuse Time Seen by Provider: 12/01/17 22:20 Chief Complaint (Nursing): Seizure History Per: Patient, EMS History/Exam Limitations: no limitations Additional Complaint(s): Patient brought to the ER by EMS for seizure at 10AM this morning, patient states she was awake when she had the seizure, that it was just one and had no other seizures throughout the day. Patient reports that she is homeless and has "no where else to go". Questionable whether or not patient took sedatives prior to arrival or in waiting room, patient currently denies. Past Medical History Reviewed: Historical Data, Nursing Documentation, Vital Signs Vital Signs: Last Vital Signs Temp 98.1 F 12/01/17 21:51 Pulse 102 H 12/01/17 21:51 Resp 18 12/01/17 21:51 BP 106/83 12/01/17 21:51 Pulse Ox 100 12/01/17 21:51 - Medical History PMH: Anxiety, Arthritis, Back Problems, Bronchitis, Depression, Fractures (Rib & wrist), Gall Bladder Disease (Cholecystitis), HTN, Seizures Denies: Diabetes, Hepatitis, HIV, Chronic Kidney Disease, Sexually Transmitted Disease - Family History Family History: States: Unknown Family Hx, Hypertension - Immunization History Hx Tetanus Toxoid Vaccination: No Hx Influenza Vaccination: No Hx Pneumococcal Vaccination: No - Home Medications Home Medications: Ambulatory Orders Medication Instructions Recorded ALPRAZolam [Xanax] 1 mg PO TID PRN 11/28/15 Zolpidem [Ambien] 10 mg PO HS PRN 11/28/15 Butalb/Acetaminophen/Caffeine 1 each PO Q8 10/27/17 [Esgic Capsule] Fluticasone Nasal [Flonase] 1 spr NS 10/27/17 Ibuprofen [Motrin Tab] 800 mg PO BID 10/27/17 Ibuprofen/Diphenhydramine Cit 1 each PO 10/27/17 [Advil Pm Caplet] Levetiracetam 500 mg PO BID 10/27/17 Ranitidine HCl [Ranitidine 150] 150 mg PO BID 10/27/17 Tylenol Pm Ex-Strength Caplet 10/27/17 - Allergies Allergies/Adverse Reactions: Allergies Allergy/AdvReac Type Severity Reaction Status Date / Time Penicillins Allergy unknown Verified 08/30/17 23:16 Review of Systems ROS Statement: Except As Marked, All Systems Reviewed And Found Negative Neurological: Positive for: Seizures Physical Exam - Reviewed Nursing Documentation Reviewed: Yes Vital Signs Reviewed: Yes - Physical Exam Appears: Positive for: Well (Slightly drowy), Non-toxic, No Acute Distress Head Exam: Positive for: ATRAUMATIC, NORMAL INSPECTION, NORMOCEPHALIC Skin: Positive for: Normal Color, Warm, DRY Eye Exam: Positive for: EOMI, Normal appearance, PERRL ENT: Positive for: Normal ENT Inspection Neck: Positive for: Normal, Painless ROM Cardiovascular/Chest: Positive for: Regular Rate, Rhythm Respiratory: Positive for: CNT, Normal Breath Sounds Gastrointestinal/Abdominal: Positive for: Normal Exam, Soft Back: Positive for: Normal Inspection Extremity: Positive for: Normal ROM Neurologic/Psych: Positive for: Alert, Oriented - Laboratory Results Result Diagrams: 12/01/17 23:46 12/01/17 23:46 - ECG O2 Sat by Pulse Oximetry: 100 Pulse Ox Interpretation: Normal Medical Decision Making Medical Decision MakinPM Patient presenting with seizure at 10AM and possible overdose -patient currently stable, normal vitals, awake and alert but slight drowsiness noted when speaking with patient -for precaution, will check labs, place patient on monitor, contact poisons -will monitor in ED for respiratory depression, further seizure activity 0000 -Resting comfortably, no seizure activity, no respiratory depression. 0200 -Resting comfortably, no seizure activity, no respiratory depression. 0400 -Resting comfortably, no seizure activity, no respiratory depression. 0500 -Patient awake, alert, steady gait, stable for discharge Disposition - Clinical Impression Clinical Impression: Homeless, Sedative abuse - Patient ED Disposition Is Patient to be Admitted: No - Disposition Referrals: Pallavi Viramontes MD [Family Provider] - Disposition: Routine/Home Disposition Time: 05:11 Condition: STABLE Instructions: Seizures, Adult (DC) Forms: [employer] (Sinhala)
[2017-12-01 23:49] LABS: BASO # 0.1 K/uL (0.0-0.2); BASO % 0.7 % (0.0-2.0); EOS # 0.1 K/uL (0.0-0.7); EOS % 0.7 % (0.0-4.0); HEMOGLOBIN 12.8 g/dL (12.0-16.0); LYMPH # 4.5 K/uL (1.0-4.3); LYMPH % 36.8 % (20.0-40.0); MEAN CELL VOLUME 86.7 fl (81.0-99.0); MEAN CORPUSCULAR HGB CONC 33.4 g/dL (33.0-37.0); MEAN PLATELET VOLUME 7.4 fl (7.2-11.7); MONO % 7.7 % (0.0-10.0); NEUT # 6.7 K/uL (1.8-7.0); NEUT % 54.1 % (50.0-75.0); RBC 4.43 Mil/uL (3.80-5.20); RED CELL DISTRIBUTION WIDTH 14.9 % (11.5-14.5); WHITE BLOOD COUNT 12.3 K/uL (4.8-10.8)
[2017-12-01 23:58] LABS: BLOOD UREA NITROGEN 6 mg/dl (7-17); CALCIUM 9.7 mg/dL (8.4-10.2); GFR NON-AFRICAN AMERICAN > 60
[2017-12-02 00:04] LABS: ACETAMINOPHEN < 10.0 ug/ml (10.0-30.0); CARBAMAZEPINE < 3.0 ug/mL (4.0-12.0); DILANTIN (PHENYTOIN) < 3.0 ug/ML (10-20); SALICYLATE < 1.0 mg/dl
[2017-12-02 00:06] LABS: VALPROIC ACID < 10.0 ug/mL (50.0-100.0)
[2017-12-02] MEDS ORDERED: Potassium Chloride 20 mEq ER Tab PO STA (01:22)
[2017-12-02] MEDS ORDERED: Potassium Chloride 20 mEq ER Tab PO ONE ×2 (01:28→01:34)
[2017-12-02 01:57] VITALS: BP 121/74; PULSE 86; RESP 16; TEMP 98.2
[2017-12-02 02:39] LABS: SQUAMOUS EPITHIAL < 1 /hpf (0-5); URINE BACTERIA RARE (<OCC); URINE BILIRUBIN NEGATIVE (NEGATIVE); URINE BLOOD NEGATIVE (NEGATIVE); URINE CLARITY CLEAR (Clear); URINE COLOR COLORLESS (YELLOW); URINE GLUCOSE (UA) NEG (Normal); URINE HYALINE CAST 0-2 /hpf (0-2); URINE LEUKOCYTE ESTERASE NEG Leu/uL (Negative); URINE PROTEIN NEGATIVE (NEGATIVE); URINE UROBILINOGEN 0.2-1.0 mg/dL (0.2-1.0)
[2017-12-02 02:52] LABS: BARBITURATES, UR POSITIVE (NEGATIVE); BENZODIAZEPINES, UR NEGATIVE (NEGATIVE); OPIATES, UR NEGATIVE (NEGATIVE); PHENCYCLIDINE, UR NEGATIVE (NEGATIVE)
[2017-12-02 05:12] VITALS: O2SAT 100
--- NOTE | 2017-12-02 08:20 | CARD ---
APPROVED REPORT Date of service: 12/02/2017 EKG Measurement Heart [id number] <Conclusion> Normal sinus rhythm Nonspecific T wave abnormality Abnormal ECG
== END 2017-12-02 05:15 | disposition home or self-care (01) ==
LOC: H.ER 21:47
DX: F13.10 Sedative, hypnotic or anxiolytic abuse, uncomplicated (principal); Z59.0 Homelessness; I10 Essential (primary) hypertension; Z88.0 Allergy status to penicillin
CPT/HCPCS: 80048; 80156; 80164; 80177; 80185; 80320; 80324; 80329; 80345; 80346; 80349; 80353; 80358; 80361; 81003; 82550; 83735; 83992; 85025; 93005; 96360; 99285; J7030

== ENCOUNTER 2017-12-06 10:42 | Emergency (ER) | payer MEDICAID ==
[2017-12-06 10:53] VITALS: BMI 19.5
[2017-12-06] MEDS ORDERED: Sodium Chloride 0.9% 1,000 ML IV STA (11:13)
--- NOTE | 2017-12-06 11:17 | ED PDOC ---
HPI: General Adult Time Seen by Provider: 12/06/17 10:56 Chief Complaint (Nursing): Medical Clearance Chief Complaint (Provider): Aggressive History Per: Patient Onset/Duration Of Symptoms: Days (today) Additional Complaint(s): [place] Boyfriend called EMS on her because he says she took 6 trazadone, but unclear when. Pt. denies and states she took her flagyl usual dose. No abd pain, weakness, headaches, chest pain, dyspnea, cough. No nausea, vomit, diarrhea. No dizziness or headaches. Denies suicidal or homicidal ideation. No drugs or etoh. Is homeless and multiple visits to the ER. Past Medical History Reviewed: Nursing Documentation, Vital Signs Vital Signs: Last Vital Signs Temp 98.5 F 12/06/17 11:01 Pulse 98 H 12/06/17 11:01 Resp 20 12/06/17 11:01 BP 105/77 12/06/17 11:01 Pulse Ox 96 12/06/17 13:42 - Medical History PMH: Anxiety, Arthritis, Back Problems, Bronchitis, Depression, Fractures (Rib & wrist), Gall Bladder Disease (Cholecystitis), HTN, Seizures Denies: Diabetes, Hepatitis, HIV, Chronic Kidney Disease, Sexually Transmitted Disease - Family History Family History: States: Unknown Family Hx - Immunization History Hx Tetanus Toxoid Vaccination: No Hx Influenza Vaccination: No Hx Pneumococcal Vaccination: No - Home Medications Home Medications: Ambulatory Orders Medication Instructions Recorded ALPRAZolam [Xanax] 1 mg PO Q12 PRN 12/06/17 Ibuprofen [Motrin Tab] 800 mg PO Q12 PRN 12/06/17 Metronidazole [Flagyl] 500 mg PO TID 12/06/17 Trazodone HCl [Trazodone HCl] 150 mg PO HS 12/06/17 Zolpidem [Ambien] 10 mg PO HS 12/06/17 busPIRone [Buspar] 5 mg PO TID 12/06/17 cloNIDine [Catapres] 0.1 mg PO TID 12/06/17 traMADol [Ultram] 50 mg PO Q12 PRN 12/06/17 - Allergies Allergies/Adverse Reactions: Allergies Allergy/AdvReac Type Severity Reaction Status Date / Time Penicillins Allergy unknown Verified 12/06/17 10:59 Review of Systems ROS Statement: Except As Marked, All Systems Reviewed And Found Negative Physical Exam - Reviewed Nursing Documentation Reviewed: Yes Vital Signs Reviewed: Yes - Physical Exam Appears: Positive for: Well, Non-toxic, No Acute Distress Head Exam: Positive for: ATRAUMATIC, NORMAL INSPECTION, NORMOCEPHALIC Skin: Positive for: Normal Color, Warm, DRY Eye Exam: Positive for: EOMI, Normal appearance, PERRL ENT: Positive for: Normal ENT Inspection Neck: Positive for: Normal, Painless ROM Cardiovascular/Chest: Positive for: Regular Rate, Rhythm Respiratory: Positive for: CNT, Normal Breath Sounds Gastrointestinal/Abdominal: Positive for: Normal Exam, Soft. Negative for: Tenderness Back: Positive for: Normal Inspection. Negative for: L CVA Tenderness, R CVA Tenderness Extremity: Positive for: Normal ROM. 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 Negative for: Facial Droop - Laboratory Results Result Diagrams: 12/06/17 11:57 12/06/17 11:57 Interpretation Of Abn Labs: 3.1 k - ECG ECG: Positive for: Interpreted By Me, Viewed By Me ECG Rhythm: Positive for: Normal QRS, Normal ST Segment, Sinus Rhythm Interpretation Of Abn EKG: qtc 480. EKG 2: qtc 462 O2 Sat by Pulse Oximetry: 96 Pulse Ox Interpretation: Normal - Progress ED Course And Treament: 1415: Stable. Multiple ER visits. Is homeless. Crisis saw pt. Does not meet criteria for admit. Fu with pcp. AAOx3. Ambulated with no issues. Disposition - Clinical Impression Clinical Impression: Homelessness - Patient ED Disposition Is Patient to be Admitted: No Counseled Patient/Family Regarding: Studies Performed, Diagnosis, Need For Followup - Disposition Referrals: [facility] [Outside] - 12/07/17 Disposition: Routine/Home Disposition Time: 14:25 Condition: STABLE Instructions: General (DC) Print Language: NAMIBIAN
[2017-12-06 12:03] LABS: BASO # 0.1 K/uL (0.0-0.2); BASO % 0.8 % (0.0-2.0); EOS # 0.1 K/uL (0.0-0.7); HEMOGLOBIN 12.3 g/dL (12.0-16.0); LYMPH # 2.3 K/uL (1.0-4.3); LYMPH % 28.8 % (20.0-40.0); MEAN CORPUSCULAR HEMOGLOBIN 29.8 pg (27.0-31.0); MEAN CORPUSCULAR HGB CONC 34.2 g/dL (33.0-37.0); MEAN PLATELET VOLUME 7.7 fl (7.2-11.7); MONO # 0.8 K/uL (0.0-0.8); MONO % 10.2 % (0.0-10.0); NEUT # 4.7 K/uL (1.8-7.0); NEUT % 59.2 % (50.0-75.0); NRBC % 0.1 % (0.0-0.0); RBC 4.12 Mil/uL (3.80-5.20); RED CELL DISTRIBUTION WIDTH 14.7 % (11.5-14.5); WHITE BLOOD COUNT 7.9 K/uL (4.8-10.8)
[2017-12-06 12:30] LABS: ACETAMINOPHEN < 10.0 ug/ml (10.0-30.0); SALICYLATE < 1.0 mg/dl
[2017-12-06 12:31] LABS: ALB/GLOB RATIO 1.4 (1.0-2.1); ALBUMIN 4.5 g/dL (3.5-5.0); ALT/SGPT 23 U/L (9-52); AST/SGOT 23 U/L (14-36); BLOOD UREA NITROGEN 19 mg/dl (7-17); CALCIUM 9.7 mg/dL (8.4-10.2); GFR NON-AFRICAN AMERICAN > 60
[2017-12-06] MEDS ORDERED: Potassium Chloride 20 mEq ER Tab PO STA (13:42)
[2017-12-06] MEDS ORDERED: Potassium Chloride 20 mEq ER Tab PO ONE (13:46)
[2017-12-06 14:35] LABS: BARBITURATES, UR POSITIVE (NEGATIVE); BENZODIAZEPINES, UR NEGATIVE (NEGATIVE); OPIATES, UR NEGATIVE (NEGATIVE); PHENCYCLIDINE, UR NEGATIVE (NEGATIVE)
[2017-12-06 14:37] VITALS: BP 124/85; PULSE 96; RESP 18; TEMP 98; O2SAT 97
--- NOTE | 2017-12-07 10:18 | CARD ---
APPROVED REPORT Date of service: 12/06/2017 <Conclusion> Normal sinus rhythm Nonspecific ST and T wave abnormality Prolonged QT Abnormal ECG
--- NOTE | 2017-12-07 10:19 | CARD ---
APPROVED REPORT Date of service: 12/06/2017 <Conclusion> Normal sinus rhythm Prolonged QT Abnormal ECG
== END 2017-12-06 14:42 | disposition home or self-care (01) ==
LOC: H.ER 10:42
DX: Z59.0 Homelessness (principal); F32.9 Major depressive disorder, single episode, unspecified; F41.9 Anxiety disorder, unspecified; I10 Essential (primary) hypertension; Z88.0 Allergy status to penicillin; R94.31 Abnormal electrocardiogram [ECG] [EKG]
CPT/HCPCS: 80053; 80320; 80324; 80329; 80345; 80346; 80349; 80353; 80358; 80361; 83992; 84484; 85025; 93005; 96360; 99283; J7030

== ENCOUNTER 2017-12-22 21:10 | Emergency (ER) | payer MEDICAID ==
[2017-12-22 21:10] VITALS: BMI 19.5
[2017-12-22 21:24] VITALS: RESP 18
[2017-12-22 23:05] LABS: BARBITURATES, UR POSITIVE (NEGATIVE); BENZODIAZEPINES, UR NEGATIVE (NEGATIVE); OPIATES, UR NEGATIVE (NEGATIVE); PHENCYCLIDINE, UR NEGATIVE (NEGATIVE)
[2017-12-22 23:10] LABS: BASO # 0.1 K/uL (0.0-0.2); BASO % 1.1 % (0.0-2.0); EOS # 0.1 K/uL (0.0-0.7); EOS % 1.1 % (0.0-4.0); HEMOGLOBIN 12.5 g/dL (12.0-16.0); LYMPH # 4.8 K/uL (1.0-4.3); MEAN CELL VOLUME 86.7 fl (81.0-99.0); MEAN CORPUSCULAR HEMOGLOBIN 29.4 pg (27.0-31.0); MEAN CORPUSCULAR HGB CONC 33.9 g/dL (33.0-37.0); MEAN PLATELET VOLUME 7.7 fl (7.2-11.7); MONO # 0.5 K/uL (0.0-0.8); MONO % 5.8 % (0.0-10.0); NEUT # 3.4 K/uL (1.8-7.0); NRBC % 0.1 % (0.0-0.0); RBC 4.25 Mil/uL (3.80-5.20); RED CELL DISTRIBUTION WIDTH 14.2 % (11.5-14.5); WHITE BLOOD COUNT 8.8 K/uL (4.8-10.8)
[2017-12-22 23:59] LABS: BLOOD UREA NITROGEN 13 mg/dl (7-17); CALCIUM 9.3 mg/dL (8.4-10.2); GFR NON-AFRICAN AMERICAN > 60
--- NOTE | 2017-12-23 01:55 | ED PDOC ---
HPI: General Adult Time Seen by Provider: 12/22/17 21:36 Chief Complaint (Nursing): Altered Mental Status Chief Complaint (Provider): AMS History Per: Patient History/Exam Limitations: no limitations Onset/Duration Of Symptoms: Hrs Current Symptoms Are (Timing): Still Present Additional Complaint(s): Radha Harris is a 57 year old female, with a past medical history of depression, HTN, substance abuse and chronic pain, who was brought to the emergency department by the police department for evaluation after she was found sleeping in a staircase outside without shoes. Patient has no medical complaints at this time but is falling asleep during history taking. No further medical complaints. PMD: None provided. Past Medical History Reviewed: Historical Data, Nursing Documentation, Vital Signs Vital Signs: Last Vital Signs Temp 98.2 F 12/23/17 05:38 Pulse 94 H 12/23/17 05:38 Resp 18 12/23/17 05:38 BP 136/92 H 12/23/17 05:38 Pulse Ox 98 12/23/17 05:38 - Medical History PMH: Anxiety, Arthritis, Back Problems, Bronchitis, Depression, Fractures (Rib & wrist), Gall Bladder Disease (Cholecystitis), HTN, Seizures, Chronic Pain Denies: Diabetes, Hepatitis, HIV, Chronic Kidney Disease, Sexually Transmitted Disease - Surgical History Surgical History: No Surg Hx - Family History Family History: States: Unknown Family Hx, Hypertension - Social History Drugs: Opiates (and benzos) - Immunization History Hx Tetanus Toxoid Vaccination: No Hx Influenza Vaccination: No Hx Pneumococcal Vaccination: No - Home Medications Home Medications: Ambulatory Orders Medication Instructions Recorded ALPRAZolam [Xanax] 1 mg PO Q12 PRN 12/06/17 Ibuprofen [Motrin Tab] 800 mg PO Q12 PRN 12/06/17 Metronidazole [Flagyl] 500 mg PO TID 12/06/17 Trazodone HCl [Trazodone HCl] 150 mg PO HS 12/06/17 Zolpidem [Ambien] 10 mg PO HS 12/06/17 busPIRone [Buspar] 5 mg PO TID 12/06/17 cloNIDine [Catapres] 0.1 mg PO TID 12/06/17 traMADol [Ultram] 50 mg PO Q12 PRN 12/06/17 - Allergies Allergies/Adverse Reactions: Allergies Allergy/AdvReac Type Severity Reaction Status Date / Time Penicillins Allergy unknown Verified 12/22/17 21:15 Review of Systems ROS Statement: Except As Marked, All Systems Reviewed And Found Negative Physical Exam - Reviewed Nursing Documentation Reviewed: Yes Vital Signs Reviewed: Yes - Physical Exam Appears: Positive for: No Acute Distress (falling asleep during exam) Head Exam: Positive for: ATRAUMATIC, NORMAL INSPECTION, NORMOCEPHALIC Skin: Positive for: Normal Color, Warm, Dry Eye Exam: Positive for: Normal appearance, EOMI, PERRL Neck: Positive for: Painless ROM Cardiovascular/Chest: Positive for: Regular Rate, Rhythm. Negative for: Murmur Respiratory: Positive for: Normal Breath Sounds. Negative for: Respiratory Distress Gastrointestinal/Abdominal: Positive for: Normal Exam, Soft. Negative for: Tenderness Extremity: Positive for: Normal ROM (upper and lower extremities). Negative for : Deformity Neurologic/Psych: Positive for: Alert - Laboratory Results Result Diagrams: 12/22/17 22:58 12/22/17 22:58 - ECG O2 Sat by Pulse Oximetry: 96 (RA) Pulse Ox Interpretation: Normal Medical Decision Making Medical Decision Making: Time: 21:36 A/P: 57 y/o female with a past medical history of depression, HTN, chronic pain and substance abuse who presents for medical evaluation. Patient is a known benzodiazepine abuse. Currently airway is intact. Will continue to monitor patient until clinically sober Initial Plan: --Alcohol serum --BMP --Drug screen, urine --CBC w/ differential --Chest one view [RAD] --Reevaluation 600 Patient is now awake, alert, states she took cough medicine last night but denies any other medication usage, despite + barbs in urine. Patient A&O x 3, steady gait, suitable for discharge. ----- Scribe Attestation: Documented by Ronaldo Alcala, acting as a scribe for Alfa Boudreaux MD. Provider Scribe Attestation: All medical record entries made by the Scribe were at my direction and personally dictated by me. I have reviewed the chart and agree that the record accurately reflects my personal performance of the history, physical exam, medical decision making, and the department course for this patient. I have also personally directed, reviewed, and agree with the discharge instructions and disposition. Disposition - Clinical Impression Clinical Impression: Sedative abuse - Patient ED Disposition Is Patient to be Admitted: No - Disposition Referrals: [facility] [Outside] Disposition: Routine/Home Disposition Time: 06:06 Condition: IMPROVED Instructions: Prescription Drug Misuse Forms: [facility] (Lithuanian)
[2017-12-23 07:14] VITALS: BP 142/84; PULSE 92; TEMP 98.4; O2SAT 99
--- NOTE | 2017-12-23 08:50 | RAD ---
Date of service: 12/22/2017 PROCEDURE: CHEST RADIOGRAPH, 1 VIEW HISTORY: potential overdose COMPARISON: Portable chest 07/08/2017. FINDINGS: LUNGS: No acute pulmonary disease appreciated bilaterally. PLEURA: No pneumothorax or pleural fluid seen. CARDIOVASCULAR: Cardiac size remains upper limits of normal with grossly ectatic thoracic aorta reiterated. OSSEOUS STRUCTURES: No significant abnormalities. VISUALIZED UPPER ABDOMEN: Normal. OTHER FINDINGS: None. IMPRESSION: No interval acute cardiopulmonary disease appreciated.
== END 2017-12-23 06:40 | disposition home or self-care (01) ==
LOC: H.ER 21:10
DX: F13.10 Sedative, hypnotic or anxiolytic abuse, uncomplicated (principal); F32.9 Major depressive disorder, single episode, unspecified; F41.9 Anxiety disorder, unspecified; G89.29 Other chronic pain; I10 Essential (primary) hypertension; Z88.0 Allergy status to penicillin

== ENCOUNTER 2018-01-14 21:30 | Emergency (ER) | payer MEDICAID ==
[2018-01-14 21:30] VITALS: BMI 19.5
[2018-01-14 23:08] LABS: SALICYLATE < 1.0 mg/dl
[2018-01-14 23:20] LABS: BARBITURATES, UR POSITIVE (NEGATIVE); BENZODIAZEPINES, UR NEGATIVE (NEGATIVE); OPIATES, UR NEGATIVE (NEGATIVE); PHENCYCLIDINE, UR NEGATIVE (NEGATIVE)
[2018-01-14 23:41] LABS: SQUAMOUS EPITHIAL 2 /hpf (0-5); URINE BILIRUBIN NEGATIVE (NEGATIVE); URINE BLOOD NEGATIVE (NEGATIVE); URINE CLARITY CLEAR (Clear); URINE COLOR YELLOW (YELLOW); URINE GLUCOSE (UA) NEG (Normal); URINE LEUKOCYTE ESTERASE NEG Leu/uL (Negative); URINE PROTEIN NEGATIVE (NEGATIVE); URINE UROBILINOGEN 0.2-1.0 mg/dL (0.2-1.0)
[2018-01-15 02:31] LABS: BASO # 0.1 K/uL (0.0-0.2); BASO % 1.1 % (0.0-2.0); EOS # 0.1 K/uL (0.0-0.7); EOS % 1.2 % (0.0-4.0); HEMOGLOBIN 12.3 g/dL (12.0-16.0); LYMPH # 5.2 K/uL (1.0-4.3); MEAN CELL VOLUME 87.7 fl (81.0-99.0); MEAN CORPUSCULAR HEMOGLOBIN 29.4 pg (27.0-31.0); MEAN CORPUSCULAR HGB CONC 33.6 g/dL (33.0-37.0); MEAN PLATELET VOLUME 8.7 fl (7.2-11.7); MONO # 0.9 K/uL (0.0-0.8); MONO % 9.4 % (0.0-10.0); NEUT # 3.4 K/uL (1.8-7.0); NEUT % 34.8 % (50.0-75.0); RBC 4.17 Mil/uL (3.80-5.20); RED CELL DISTRIBUTION WIDTH 13.7 % (11.5-14.5); WHITE BLOOD COUNT 9.6 K/uL (4.8-10.8)
[2018-01-15 02:44] LABS: ALB/GLOB RATIO 1.4 (1.0-2.1); ALBUMIN 4.8 g/dL (3.5-5.0); ALT/SGPT 11 U/L (9-52); AST/SGOT 71 U/L (14-36); BLOOD UREA NITROGEN 13 mg/dl (7-17); CALCIUM 9.9 mg/dL (8.4-10.2); GFR NON-AFRICAN AMERICAN > 60
[2018-01-15 04:27] LABS: LYMPH % 53.5 % (20.0-40.0)
--- NOTE | 2018-01-15 05:39 | ED PDOC ---
Addendum entered and electronically signed by Janiya Dixon PA-C 01/15/18 06:32: Disposition Clinical Impression: Substance abuse, Depression Disposition: HOME/ ROUTINE Disposition Time: 06:01 Condition: STABLE Instructions: Depression Stand Alone Forms: [facility] (Vietnamese) Original Note: HPI: Psych/Substance Abuse Chief Complaint (Provider): Denies complaint ED Caveat: Acuity of Condition History Per: Patient History/Exam Limitations: no limitations Onset/Duration Of Symptoms: Days Current Symptoms Are (Timing): Still Present Modifying Factor(s): None Additional Complaint(s): 57 yo female with history of HTN, anxiety, depression and back pain presents for evaluation. Pt appears lethargic but responds to questions. 911 was called by ieyaquelin because patient appeared to be under the influenza. Pt denies complaints. Pt states she takes her normal prescribed medications but has not done drugs. <Janiya Dixon - Last Filed: 01/15/18 06:31> <Linnette James - Last Filed: 01/15/18 21:32> Time Seen by Provider: 01/14/18 22:13 Chief Complaint (Nursing): Substance Abuse Past Medical History Reviewed: Historical Data, Nursing Documentation, Vital Signs Vital Signs: Last Vital Signs Temp 96.7 F L 01/14/18 21:36 Pulse 100 H 01/14/18 21:36 Resp 16 01/14/18 21:36 BP 113/81 01/14/18 21:36 Pulse Ox 96 01/14/18 21:36 - Medical History PMH: Anxiety, Arthritis, Back Problems, Bronchitis, Depression, Fractures (Rib & wrist), Gall Bladder Disease (Cholecystitis), HTN, Seizures, Chronic Pain Denies: Diabetes, Hepatitis, HIV, Chronic Kidney Disease, Sexually Transmitted Disease - Family History Family History: States: Unknown Family Hx, Hypertension - Immunization History Hx Tetanus Toxoid Vaccination: No Hx Influenza Vaccination: No Hx Pneumococcal Vaccination: No <Janiya Dixon - Last Filed: 01/15/18 06:31> Vital Signs: Last Vital Signs Temp 97.9 F 01/15/18 07:02 Pulse 74 01/15/18 07:02 Resp 17 01/15/18 07:02 BP 118/64 01/15/18 07:02 Pulse Ox 98 01/15/18 07:02 <Linnette James J - Last Filed: 01/15/18 21:32> - Home Medications Home Medications: Ambulatory Orders Medication Instructions Recorded ALPRAZolam [Xanax] 1 mg PO Q12 PRN 12/06/17 Metronidazole [Flagyl] 500 mg PO TID 12/06/17 RX: Ibuprofen [Motrin Tab] 800 mg PO Q12 PRN 12/06/17 RX: cloNIDine [Catapres] 0.1 mg PO TID 12/06/17 RX: traMADol [Ultram] 50 mg PO Q12 PRN 12/06/17 Trazodone HCl 150 mg PO HS 12/06/17 Zolpidem [Ambien] 10 mg PO HS 12/06/17 busPIRone [Buspar] 5 mg PO TID 12/06/17 - Allergies Allergies/Adverse Reactions: Allergies Allergy/AdvReac Type Severity Reaction Status Date / Time Penicillins Allergy unknown Verified 01/14/18 21:36 Review of Systems ROS Statement: Except As Marked, All Systems Reviewed And Found Negative Constitutional: Negative for: Fever, Chills Neurological: Negative for: Confusion, Seizures, Headache, Dizziness <Janiya Dixon - Last Filed: 01/15/18 06:31> Physical Exam - Reviewed Nursing Documentation Reviewed: Yes Vital Signs Reviewed: Yes - Physical Exam Appears: Positive for: Well, Non-toxic, No Acute Distress Head Exam: Positive for: ATRAUMATIC, NORMAL INSPECTION, NORMOCEPHALIC Skin: Positive for: Normal Color, Warm, DRY Eye Exam: Positive for: Normal appearance, EOMI, PERRL ENT: Positive for: Normal ENT Inspection Neck: Positive for: Normal, Painless ROM Cardiovascular/Chest: Positive for: Regular Rate, Rhythm Respiratory: Positive for: Normal Breath Sounds. Negative for: Accessory Muscle Use, Respiratory Distress Back: Positive for: Normal Inspection Extremity: Positive for: Normal ROM Neurologic/Psych: Positive for: Alert, Oriented <Janiya Dixon - Last Filed: 01/15/18 06:31> - Laboratory Results Result Diagrams: 01/15/18 02:19 01/15/18 02:19 - ECG O2 Sat by Pulse Oximetry: 96 <Janiya Dixon - Last Filed: 01/15/18 06:31> - Laboratory Results Result Diagrams: 01/15/18 02:19 01/15/18 02:19 <Linnette James - Last Filed: 01/15/18 21:32> Medical Decision Making Medical Decision Making: Head CT normal. Repeat tylenol normal. 0535 - Denies SI/HI. Pt with history of depression and xanax abuse. 0600 - Endorsed pending psychiatric evaluation <Janiya Dixon - Last Filed: 01/15/18 06:31> Disposition - Patient ED Disposition Is Patient to be Admitted: Transfer of Care - Disposition Disposition: Transfer of Care Disposition Time: 06:01 <Janiya Dixon - Last Filed: 01/15/18 06:31> <Linnette James - Last Filed: 01/15/18 21:32> - Clinical Impression Clinical Impression: Substance abuse, Depression - Disposition Condition: STABLE Instructions: Depression Forms: [facility] (Vietnamese) - PA / DIRECTOR INTERNATIONAL / Resident Statement MD/DO has reviewed & agrees with the documentation as recorded. <Linnette James - Last Filed: 01/15/18 21:32>
[2018-01-15 07:41] VITALS: BP 118/64; PULSE 74; RESP 17; TEMP 97.9; O2SAT 98
--- NOTE | 2018-01-15 07:53 | CARD ---
APPROVED REPORT Date of service: 01/14/2018 EKG Measurement Heart [id number] <Conclusion> Normal sinus rhythm Nonspecific T wave abnormality Abnormal ECG
--- NOTE | 2018-01-15 09:37 | CT ---
Date of service: 01/15/2018 PROCEDURE: CT HEAD WITHOUT CONTRAST. HISTORY: AMS COMPARISON: 08/04/2017 TECHNIQUE: Axial computed tomography images were obtained through the head/brain without intravenous contrast. Radiation dose: Total exam DLP = 667 mGy-cm. This CT exam was performed using one or more of the following dose reduction techniques: Automated exposure control, adjustment of the mA and/or kV according to patient size, and/or use of iterative reconstruction technique. FINDINGS: HEMORRHAGE: No intracranial hemorrhage. BRAIN: No mass effect or edema. No atrophy or chronic microvascular ischemic changes. VENTRICLES: Unremarkable. No hydrocephalus. CALVARIUM: Unremarkable. PARANASAL SINUSES: Minor ethmoid air cell disease is seen. MASTOID AIR CELLS: Unremarkable as visualized. No inflammatory changes. OTHER FINDINGS: None. IMPRESSION: No evidence of intracranial hemorrhage or recent infarct. Stable appearance of the brain when compared to the prior study. No new cortical effacement.
== END 2018-01-15 06:36 | disposition home or self-care (01) ==
LOC: H.ER 21:30
DX: F32.9 Major depressive disorder, single episode, unspecified (principal); F19.10 Other psychoactive substance abuse, uncomplicated; F41.9 Anxiety disorder, unspecified; G89.29 Other chronic pain; I10 Essential (primary) hypertension; Z88.0 Allergy status to penicillin

== ENCOUNTER 2018-03-11 06:45 | Inpatient (IN) | payer MEDICAID ==
[2018-03-11] MEDS ORDERED: Sodium Chloride 0.9% 1,000 ML IV STA (07:45)
[2018-03-11 08:30] LABS: BARBITURATES, UR POSITIVE (NEGATIVE); BENZODIAZEPINES, UR NEGATIVE (NEGATIVE); OPIATES, UR NEGATIVE (NEGATIVE); PHENCYCLIDINE, UR NEGATIVE (NEGATIVE)
[2018-03-11 08:31] LABS: BASO # 0.1 K/uL (0.0-0.2); BASO % 0.8 % (0.0-2.0); EOS # 0.1 K/uL (0.0-0.7); EOS % 1.5 % (0.0-4.0); HEMOGLOBIN 12.6 g/dL (12.0-16.0); LYMPH # 2.3 K/uL (1.0-4.3); LYMPH % 27.4 % (20.0-40.0); MEAN CELL VOLUME 84.6 fl (81.0-99.0); MEAN CORPUSCULAR HEMOGLOBIN 27.7 pg (27.0-31.0); MEAN CORPUSCULAR HGB CONC 32.8 g/dL (33.0-37.0); MONO # 0.7 K/uL (0.0-0.8); MONO % 7.8 % (0.0-10.0); NEUT # 5.2 K/uL (1.8-7.0); NEUT % 62.5 % (50.0-75.0); NRBC % 0.1 % (0.0-0.0); RBC 4.53 Mil/uL (3.80-5.20); WHITE BLOOD COUNT 8.3 K/uL (4.8-10.8)
[2018-03-11 08:57] LABS: ALB/GLOB RATIO 1.2 (1.0-2.1); ALBUMIN 4.3 g/dL (3.5-5.0); ALT/SGPT 25 U/L (9-52); AST/SGOT 20 U/L (14-36); BLOOD UREA NITROGEN 7 mg/dl (7-17); CALCIUM 9.6 mg/dL (8.4-10.2); GFR NON-AFRICAN AMERICAN > 60
--- NOTE | 2018-03-11 09:07 | CT ---
Date of service: 03/11/2018 PROCEDURE: CT HEAD WITHOUT CONTRAST. HISTORY: headache COMPARISON: None available. TECHNIQUE: Axial computed tomography images were obtained through the head/brain without intravenous contrast. Radiation dose: Total exam DLP = 717.55 mGy-cm. This CT exam was performed using one or more of the following dose reduction techniques: Automated exposure control, adjustment of the mA and/or kV according to patient size, and/or use of iterative reconstruction technique. FINDINGS: HEMORRHAGE: No intracranial hemorrhage. BRAIN: No mass effect or edema. No atrophy or chronic microvascular ischemic changes. VENTRICLES: Unremarkable. No hydrocephalus. CALVARIUM: Unremarkable. PARANASAL SINUSES: Unremarkable as visualized. No significant inflammatory changes. MASTOID AIR CELLS: Unremarkable as visualized. No inflammatory changes. OTHER FINDINGS: None. IMPRESSION: Normal CT of the Head.
[2018-03-11] MEDS ORDERED: Potassium Chloride 20 mEq ER Tab PO STA (09:57)
--- NOTE | 2018-03-11 09:59 | ED PDOC ---
Syncope/Near Syncope/Dizziness Time Seen by Provider: 03/11/18 07:10 Chief Complaint (Nursing): Dizziness/Lightheaded Chief Complaint (Provider): Dizziness/Lightheaded History Per: Patient History/Exam Limitations: no limitations Additional Complaint(s): 57 y/o female with a PMHx of Anxiety, depression and seizure disorder presents to the ED for evaluation of constant "room-spinning" dizziness, sudden onset three hours ago. Patient reports symptom is associated with numbness to the hands and nausea. Patient additionally reports of being complaint with Dilantin for seizure disorder and furosemide for migraines. Otherwise, patient denies any numbness to the legs, vomiting and headache. Of note, patient is known to provider and ED staff for frequent visit and bed-seeking behavior. PMD: Tommy Past Medical History Reviewed: Historical Data, Nursing Documentation, Vital Signs Vital Signs: Last Vital Signs Temp 98.7 F 03/11/18 06:54 Pulse 92 H 03/11/18 06:54 Resp 16 03/11/18 06:54 BP 120/79 03/11/18 06:54 Pulse Ox 98 03/11/18 06:54 - Medical History PMH: Anxiety, Arthritis, Back Problems, Bronchitis, Depression, Fractures (Rib & wrist), Gall Bladder Disease (Cholecystitis), Chronic Pain Denies: Diabetes, Hepatitis, HIV, HTN, Chronic Kidney Disease, Seizures, Sexually Transmitted Disease - Surgical History Surgical History: No Surg Hx - Family History Family History: States: Unknown Family Hx, Hypertension - Immunization History Hx Tetanus Toxoid Vaccination: No Hx Influenza Vaccination: No Hx Pneumococcal Vaccination: No - Home Medications Home Medications: Ambulatory Orders Medication Instructions Recorded ALPRAZolam [Xanax] 1 mg PO Q12 PRN 12/06/17 Ibuprofen [Motrin Tab] 800 mg PO Q12 PRN 12/06/17 Metronidazole [Flagyl] 500 mg PO TID 12/06/17 Trazodone HCl 150 mg PO HS 12/06/17 Zolpidem [Ambien] 10 mg PO HS 12/06/17 busPIRone [Buspar] 5 mg PO TID 12/06/17 cloNIDine [Catapres] 0.1 mg PO TID 12/06/17 traMADol [Ultram] 50 mg PO Q12 PRN 12/06/17 Meclizine [Meclizine*] 25 mg PO Q12 PRN #10 tab 03/11/18 - Allergies Allergies/Adverse Reactions: Allergies Allergy/AdvReac Type Severity Reaction Status Date / Time Penicillins Allergy unknown Verified 03/11/18 06:54 Review of Systems ROS Statement: Except As Marked, All Systems Reviewed And Found Negative Gastrointestinal: Positive for: Nausea. Negative for: Vomiting Neurological: Positive for: Numbness (to the hands. ), Dizziness (room- spinning). Negative for: Headache Physical Exam - Reviewed Nursing Documentation Reviewed: Yes Vital Signs Reviewed: Yes - Physical Exam Appears: Positive for: No Acute Distress Head Exam: Positive for: ATRAUMATIC, NORMOCEPHALIC Skin: Positive for: Normal Color, Warm, Dry Eye Exam: Positive for: Normal appearance, EOMI, PERRL Neck: Positive for: Normal, Painless ROM Cardiovascular/Chest: Positive for: Regular Rate, Rhythm. Negative for: Murmur Respiratory: Positive for: Normal Breath Sounds. Negative for: Respiratory Distress Gastrointestinal/Abdominal: Positive for: Normal Exam, Soft. Negative for: Tenderness Extremity: Positive for: Normal ROM. Negative for: Deformity Neurologic/Psych: Positive for: Alert, Oriented. Negative for: Motor/Sensory Deficits - Laboratory Results Result Diagrams: 03/11/18 08:24 03/11/18 08:24 Interpretation Of Abn Labs: 3.3 k - ECG ECG: Positive for: Interpreted By Me, Viewed By Ms ECG Rhythm: Positive for: Normal QRS, Normal ST Segment, Sinus Rhythm O2 Sat by Pulse Oximetry: 98 (RA) Pulse Ox Interpretation: Normal - CT Scan/US ct Other Rad Studies (CT/US): Read By Radiologist Other Rad Interpretation: no acute - Progress ED Course And Treament: 1000: Stable. AAOx3. Pain free. Tolerated PO. Fu with pcp. Frequent ER visits for the same and other issues. 1200: Stable. She is dizzy. 1211: AAOx3. Pt. stable. Spoke with Dr. Sanders. Will admit tele. Medical Decision Making Medical Decision Making: Time: 744 Plan: -- CT Head w/o Contrast -- EKG -- Alcohol Serum -- CMP -- Urine Drug Screen -- Troponin I -- CBC with Differentials -- Antivert 25 mg PO -- Sodium Chloride IV 1000 mls/hr -- Zofran Inj 4 mg IV Time: 956 Plan: -- K-Dur 20 mEq ER tab PO CT HEAD RESULTS FINDINGS: HEMORRHAGE: No intracranial hemorrhage. BRAIN: No mass effect or edema. No atrophy or chronic microvascular ischemic changes. VENTRICLES: Unremarkable. No hydrocephalus. CALVARIUM: Unremarkable. PARANASAL SINUSES: Unremarkable as visualized. No significant inflammatory changes. MASTOID AIR CELLS: Unremarkable as visualized. No inflammatory changes. OTHER FINDINGS: None. IMPRESSION: Normal CT of the Head. Scribe Attestation: Documented by Madisyn Coughlin, acting as a scribe for Brett Perez MD. Provider Scribe Attestation: All medical record entries made by the Scribe were at my direction and persona lly dictated by me. I have reviewed the chart and agree that the record accurately reflects my personal performance of the history, physical exam, medical decision making, and the department course for this patient. I have also personally directed, reviewed, and agree with the discharge instructions and disposition. Disposition - Clinical Impression Clinical Impression: Dizziness of unknown cause, Hypokalemia - Patient ED Disposition Is Patient to be Admitted: No Counseled Patient/Family Regarding: Studies Performed, Diagnosis - Disposition Disposition Time: 10:11 Condition: FAIR Prescriptions: Meclizine [Meclizine*] 25 mg PO Q12 PRN #10 tab PRN Reason: Dizziness - Pt Status Changed To: Hospital Disposition Of: Observation - POA Present On Arrival: None
--- NOTE | 2018-03-11 17:25 | CARD ---
APPROVED REPORT Date of service: 03/11/2018 EKG Measurement Heart [id number] <Conclusion> Normal sinus rhythm Nonspecific ST and T wave abnormality Abnormal ECG
--- NOTE | 2018-03-12 21:21 | CP.PCM.CON ---
History of Present Illness - History of Present Illness History of Present Illness: 57 y/o female with a PMHx of Anxiety, depression and seizure disorder presents to the ED for evaluation of constant "room-spinning" dizziness, sudden onset three hours ago. Patient reports symptom is associated with numbness to the ha ds and nausea. Patient additionally reports of being complaint with Dilantin for seizure disorder and furosemide for migraines. Otherwise, patient denies any numbness to the legs, vomiting and headache. Of note, patient is known to provider and ED staff for frequent visit and bed-seeking behavior. ROS: dizziness. PMH/PSH: as above. 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 All: nkda ON exam: Exam shows wide based gait, otherwise normal exam. Past Patient History - Infectious Disease Hx of Infectious Diseases: None - Past Medical History & Family History Past Medical History?: Yes - Past Social History Smoking Status: Former Smoker - CARDIAC Hx Hypertension: No - PULMONARY Hx Bronchitis: Yes - NEUROLOGICAL Hx Seizures: No - HEENT Hx HEENT Problems: No - RENAL Hx Chronic Kidney Disease: No - ENDOCRINE/METABOLIC Hx Endocrine Disorders: No - HEMATOLOGICAL/ONCOLOGICAL Hx Human Immunodeficiency Virus (HIV): No - INTEGUMENTARY Hx Dermatological Problems: No - MUSCULOSKELETAL/RHEUMATOLOGICAL Hx Arthritis: Yes Hx Falls: No Hx Fractures: Yes (Rib & wrist) - GASTROINTESTINAL Hx Gall Bladder Disease: Yes (Cholecystitis) - GENITOURINARY/GYNECOLOGICAL Hx Sexually Transmitted Disorders: No - PSYCHIATRIC Hx Anxiety: Yes Hx Depression: Yes Hx Substance Use: Yes - SURGICAL HISTORY Hx Surgeries: Yes Hx Tubal Ligation: Yes - ANESTHESIA Hx Anesthesia: Yes Hx Anesthesia Reactions: No Hx Malignant Hyperthermia: No Meds Home Medications: Home Medication List Medication Instructions Recorded Confirmed Type RX: Meclizine [Meclizine*] 25 mg PO Q12 PRN #10 tab 03/11/18 Rx Allergies/Adverse Reactions: Allergies Allergy/AdvReac Type Severity Reaction Status Date / Time Penicillins Allergy unknown Verified 03/11/18 06:54 - Medications Medications: Current Medications Clonidine HCl (Catapres) 0.1 mg PO BID [facility] Last Admin: 03/12/18 16:45 Dose: 0.1 mg Meclizine HCl (Antivert) 25 mg PO TID [facility] Last Admin: 03/12/18 16:45 Dose: 25 mg Metoclopramide HCl (Reglan) 5 mg PO Q6 PRN PRN Reason: Nausea/Vomiting Last Admin: 03/11/18 17:55 Dose: 5 mg Phenytoin Sodium (Dilantin) 100 mg PO Q12H [facility] Last Admin: 03/12/18 18:14 Dose: 100 mg Trazodone HCl (Desyrel) 150 mg PO HS [facility] Last Admin: 03/11/18 22:55 Dose: 150 mg Zolpidem Tartrate (Ambien) 10 mg PO HS PRN PRN Reason: Sleep Last Admin: 03/11/18 22:54 Dose: 10 mg Results - Vital Signs Recent Vital Signs: Last Vital Signs Temp 98.1 F 03/12/18 19:58 Pulse 80 03/12/18 19:58 Resp 16 03/12/18 19:58 BP 94/64 L 03/12/18 19:58 Pulse Ox 95 03/12/18 19:58 - Labs Result Diagrams: 03/11/18 08:24 03/13/18 04:25 Assessment & Plan - Assessment and Plan (Free Text) Assessment: 57 yr old woman with long standing epilepsy, on dilantin and with migraine. She presents with acute on chronic onset dizziness, that is mainly positional in nature. PLan; 1. dilantin level. 2. MRI BR[facility] without beverly. Thank you Dr. cancino
--- NOTE | 2018-03-13 03:32 | HP ---
HISTORY OF PRESENT ILLNESS: The patient is a 57-year-old white female with past medical history of anxiety, depression and seizure disorder, presented to the emergency room for evaluation of dizziness for 2-day duration. The patient was trying home remedies but with no improvement. The patient stated that she feels the room spinning around her. The patient denied to have any symptoms of tinnitus or deafness, no other symptoms of upper respiratory tract infection or other review of systems is negative. ALLERGIES: NO KNOWN ALLERGY. MEDICATIONS: As per MAR, reviewed and ordered. SOCIAL HISTORY: No history of smoking, EtOH or substance abuse. FAMILY HISTORY: Not contributory. PAST MEDICAL HISTORY: As above. PHYSICAL EXAMINATION: GENERAL: The patient is in bed, not in any cardiopulmonary distress at the time of this examination. VITAL SIGNS: Blood pressure of 120/70, temperature 98.2, respiratory rate 18 and pulse of 76. HEENT: Pupils equal, reactive to light. Normal-appearing mucosa of the conjunctivae, oropharynx and nasal membrane mucosa. NECK: Supple. No JVD. No carotid bruit. No lymph node. No thyromegaly. CHEST AND LUNGS: Bilateral symmetrical expansion. Good air exchange. No rales, no rhonchi. CARDIOVASCULAR SYSTEM: PMI not localized. S1, S2. No additional sounds. ABDOMEN: Normoactive bowel sounds. No tenderness. No organomegaly. No masses. EXTREMITIES: No cyanosis, no clubbing, no edema. 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 No neurological deficit could be appreciated. ASSESSMENT: 1. Dizziness with tendency to fall. 2. History of seizure disorder. 3. Anxiety. 4. Depression. PLAN: Continue current medications and we will add meclizine 12.5 mg 3 times a day as needed and check Dilantin level. Neurology consult. Ke Sanders MD
[2018-03-13 06:02] LABS: BLOOD UREA NITROGEN 11 mg/dl (7-17); CALCIUM 9.4 mg/dL (8.4-10.2); GFR NON-AFRICAN AMERICAN > 60
[2018-03-13 06:03] LABS: ALB/GLOB RATIO 1.1 (1.0-2.1); ALBUMIN 3.7 g/dL (3.5-5.0); ALT/SGPT 18 U/L (9-52); AST/SGOT 15 U/L (14-36)
[2018-03-13] MEDS ORDERED: Permethrin 5% CREAM TOP ONE (09:54)
[2018-03-13] MEDS ORDERED: Permethrin 1% Kit 59 ML BOTTLE TOP ONE (09:54)
--- NOTE | 2018-03-13 13:27 | CP.PCM.PN ---
Subjective - Date & Time of Evaluation Date of Evaluation: 03/13/18 Time of Evaluation: 13:27 - Subjective Subjective: Neurology Consultation Follow-Up Note: Mrs. Harris was evaluated this afternoon at bedside. She is in an isolation room for contact precautions, as she found bugs crawling on her. She is here for dizziness and headache. She currently complains of having a headache, but has not received an analgesic to help. She also c/o dizziness and feeling "the room spin" when she gets up and ambulates. Denies visual changes, aura, tinnitus, chest pain, palpitations, shortness of breath, abd pain, n/v/d. No acute overnight events per chart review; no seizure activity. Objective - Vital Signs/Intake and Output Vital Signs (last 24 hours): Temp Pulse Resp BP Pulse Ox 98.3 F 81 20 96/66 L 96 03/13/18 12:59 03/13/18 12:59 03/13/18 12:59 03/13/18 12:59 03/13/18 12:59 - Medications Medications: Current Medications Clonidine HCl (Catapres) 0.1 mg PO BID [facility] Last Admin: 03/13/18 10:04 Dose: 0.1 mg Meclizine HCl (Antivert) 25 mg PO TID [facility] Last Admin: 03/13/18 10:05 Dose: 25 mg Metoclopramide HCl (Reglan) 5 mg PO Q6 PRN PRN Reason: Nausea/Vomiting Last Admin: 03/11/18 17:55 Dose: 5 mg Phenytoin Sodium (Dilantin) 100 mg PO Q12H [facility] Last Admin: 03/13/18 05:46 Dose: 100 mg Trazodone HCl (Desyrel) 150 mg PO HS [facility] Last Admin: 03/12/18 21:53 Dose: 150 mg Zolpidem Tartrate (Ambien) 10 mg PO HS PRN PRN Reason: Sleep Last Admin: 03/12/18 21:52 Dose: 10 mg - Labs Labs: 03/11/18 08:24 03/13/18 04:25 - Constitutional Appears: Well, Non-toxic, No Acute Distress - Head Exam Head Exam: ATRAUMATIC, NORMAL INSPECTION, NORMOCEPHALIC - Eye Exam Eye Exam: EOMI, Normal appearance, PERRL Pupil Exam: NORMAL ACCOMODATION, PERRL - ENT Exam ENT Exam: Mucous Membranes Moist - Neck Exam Neck Exam: Full ROM, Normal Inspection - Respiratory Exam Respiratory Exam: NORMAL BREATHING PATTERN - Extremities Exam Extremities Exam: Full ROM - Neurological Exam Neurological Exam: Alert, Awake, CN II-XII Intact, Oriented x3, Reflexes Normal Neuro motor strength exam: Left Upper Extremity: 5, Right Upper Extremity: 5, Left Lower Extremity: 5, Right Lower Extremity: 5 Additional comments: Speech clear and fluid Strength BLE and BUE 5/5 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 Gait not assessed 2/2 headache during exam and risk of falls with dizziness. - Psychiatric Exam Psychiatric exam: Normal Affect, Normal Mood - Skin Skin Exam: Normal Color Assessment and Plan (1) Dizziness Assessment & Plan: Imaging: -CT Head (03/11/18): Normal CT of the Head. -Mrs. Harris is admitted for dizziness, likely vertigo as she admits "the room is spinning" and admits to relief of symptoms with Meclizine. -MRI Brain ordered---will follow up with results once completed. -Fioricet prn for headache. -Continue Meclizine. -Obtain Dilantin level lon---was done on 03/11/18---still no result. -Continue PT. -Please notify neuro team of any acute changes in patient's condition. Case discussed with Dr. Cain. Thank you for this consultation. We will continue to follow the patient while in the hospital. Status: Acute
[2018-03-13] MEDS: Apap-Butalbital-Caffeine 325-50-40mg Tab PO PRN (16:07)
[2018-03-13] MEDS: Artificial Tears Opht Soln OU SCH (16:13)
--- NOTE | 2018-03-13 19:54 | PN ---
DATE: 03/13/2018 SUBJECTIVE: She is still complaining of dizziness. PHYSICAL EXAMINATION: VITAL SIGNS: Blood pressure 90/54, temperature 98.7, respiratory rate 16, and pulse 78. HEENT: Pupils equal and reactive to light. Normal appearing mucosa of the conjunctivae, oropharynx, and nasal membrane mucosa. NECK: Supple. No JVD. No carotid bruit. No lymph node. No thyromegaly. CHEST AND LUNGS: Bilateral symmetrical expansion. Good air exchange. No rales, no rhonchi. CARDIOVASCULAR SYSTEM: PMI not localized. S1, S2. No additional sounds. ABDOMEN: Normoactive bowel sounds. No tenderness. No organomegaly. No masses. EXTREMITIES: No cyanosis, no clubbing, no edema. CENTRAL NERVOUS SYSTEM: Alert, awake, oriented x2. No neurological deficit could be appreciated. ASSESSMENT: History of seizure disorder, dizziness with likely new onset vertigo. PLAN: We will follow Neurology recommendation to meclizine p.r.n. as well as the patient is scheduled for MRI of the head. Physical therapy. Ke Sanders MD
[2018-03-14] MEDS: Artificial Tears Opht Soln OU SCH ×2 (09:50→17:28)
[2018-03-14] MEDS: Apap-Butalbital-Caffeine 325-50-40mg Tab PO PRN ×2 (10:08→15:41)
--- NOTE | 2018-03-14 10:46 | CP.PCM.PN ---
Subjective - Date & Time of Evaluation Date of Evaluation: 03/14/18 Time of Evaluation: 10:41 - Subjective Subjective: Neurology Consultation Follow-Up Note: Mrs. Harris was evaluated this morning at bedside. She is still in an isolation room for contact precautions, as she found bugs crawling on her. She currently has no complaints of pain or dizziness. Per her the meclizine and fioricet are effective. Denies h/a, dizziness, visual changes, aura, tinnitus, chest pain, palpitations, shortness of breath, abd pain, n/v/d. No acute overnight events per chart review; no seizure activity. Objective - Vital Signs/Intake and Output Vital Signs (last 24 hours): Temp Pulse Resp BP Pulse Ox 97.9 F 86 18 106/75 97 03/14/18 08:29 03/14/18 08:29 03/14/18 08:29 03/14/18 08:29 03/14/18 08:29 - Medications Medications: Current Medications Acetaminophen/Butalbital/Caffeine (Fioricet) 1 tab PO Q4 PRN PRN Reason: Headache Last Admin: 03/14/18 10:08 Dose: 1 tab Artificial Tears (Artificial Tears) 1 drop OU BID VELASQUEZ Last Admin: 03/14/18 09:50 Dose: 1 drop Clonidine HCl (Catapres) 0.1 mg PO BID VELASQUEZ Last Admin: 03/14/18 09:50 Dose: 0.1 mg Meclizine HCl (Antivert) 25 mg PO Q8 VELASQUEZ Last Admin: 03/14/18 09:50 Dose: 25 mg Metoclopramide HCl (Reglan) 5 mg PO Q6 PRN PRN Reason: Nausea/Vomiting Last Admin: 03/11/18 17:55 Dose: 5 mg Phenytoin Sodium (Dilantin) 100 mg PO Q12H VELASQUEZ Last Admin: 03/14/18 06:44 Dose: 100 mg Trazodone HCl (Desyrel) 150 mg PO HS VELASQUEZ Last Admin: 03/13/18 21:47 Dose: 150 mg Zolpidem Tartrate (Ambien) 10 mg PO HS PRN PRN Reason: Sleep Last Admin: 03/13/18 21:48 Dose: 10 mg - Labs Labs: 03/11/18 08:24 03/13/18 04:25 - Constitutional Appears: Well, Non-toxic, No Acute Distress - Head Exam Head Exam: ATRAUMATIC, NORMAL INSPECTION, NORMOCEPHALIC - Eye Exam Eye Exam: EOMI, Normal appearance, PERRL Pupil Exam: NORMAL ACCOMODATION, PERRL - ENT Exam ENT Exam: Mucous Membranes Moist - Neck Exam Neck Exam: Full ROM - Respiratory Exam Respiratory Exam: NORMAL BREATHING PATTERN - Extremities Exam Extremities Exam: Full ROM, Normal Inspection. absent: Calf Tenderness, Pedal Edema - Neurological Exam Neurological Exam: Alert, Awake, CN II-XII Intact, Normal Gait, Oriented x3, Reflexes Normal Neuro motor strength exam: Left Upper Extremity: 5, Right Upper Extremity: 5, Left Lower Extremity: 5, Right Lower Extremity: 5 Additional comments: Speech clear and fluid Strength BLE and BUE 5/5 Telemarketer 5/5 Sensation intact and equal; fine motor normal; reflexes normal. Gait not assessed - Psychiatric Exam Psychiatric exam: Normal Affect, Normal Mood - Skin Skin Exam: Normal Color Assessment and Plan (1) Dizziness Assessment & Plan: Imaging: -CT Head (03/11/18): Normal CT of the Head. -Mrs. Harris is admitted for dizziness, likely vertigo as she admits "the room is spinning". -MRI Brain ordered; done this morning---will follow up with results once completed. -Continue Fioricet prn for headache. -Continue Meclizine. -Obtain Dilantin level lon---was done on 03/11/18---still no result. Second order for a stat Dilantin level was ordered this morning. -Continue PT. -Please notify neuro team of any acute changes in patient's condition or abnormal MRI. -Discussed plan with Dr. Sanders -If MRI Brain is negative pt may be d/c home. -We will continue to follow the patient while in the hospital. Case discussed with Dr. Cain. Status: Acute
[2018-03-14 15:05] VITALS: BMI 18.1
--- NOTE | 2018-03-14 16:47 | MRI ---
Date of service: 03/14/2018 PROCEDURE: MRI BRAIN WITHOUT CONTRAST HISTORY: numbness, dizziness COMPARISON: None available. TECHNIQUE: Multiplanar, multisequence MR images of the brain were obtained without intravenous contrast enhancement. FINDINGS: HEMORRHAGE: None DWI: No evidence of an acute or early subacute infarction. BRAIN PARENCHYMA: No mass effect or edema. No atrophy or chronic microvascular ischemic changes. VENTRICLES: Unremarkable. No hydrocephalus. CRANIUM: Unremarkable. ORBITS: Grossly unremarkable. PARANASAL SINUSES/MASTOIDS: Clear VASCULAR SYSTEM: Skull base flow voids intact. OTHER FINDINGS: None. IMPRESSION: Unremarkable non contrast enhanced MRI of the brain.
--- NOTE | 2018-03-15 02:41 | PN ---
DATE: 03/14/2018 SUBJECTIVE: The patient is seen today. She is not in any cardiopulmonary distress. The patient did not have anymore seizure activity. PHYSICAL EXAMINATION: VITAL SIGNS: Blood pressure 101/63, temperature 98.3, respiratory rate 18, and pulse 84. HEENT: Pupils equal and reactive to light. Normal-appearing mucosa of the conjunctivae, oropharynx, and nasal membrane mucosa. NECK: Supple. No JVD. No carotid bruit. No lymph node. No thyromegaly. CHEST AND LUNGS: Bilateral symmetrical expansion. Good air exchange. No rales. No rhonchi. CARDIOVASCULAR SYSTEM: PMI not localized. S1 and S2. No additional sounds. ABDOMEN: Normoactive bowel sounds. No tenderness. No organomegaly. No masses. EXTREMITIES: No cyanosis, no clubbing, no edema. CENTRAL NERVOUS SYSTEM: Alert, awake, and oriented x2. No neurological deficits could be appreciated. 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 PLAN: We will follow MRI done and recommendations of neurologist. Ke Sanders MD
[2018-03-15 08:13] VITALS: BP 106/72; PULSE 87; RESP 20; TEMP 98.6; O2SAT 96
[2018-03-15] MEDS: Artificial Tears Opht Soln OU SCH (09:16)
[2018-03-15 10:23] LABS: PHENYTOIN,FREE 0.7 mg/L (1.0-2.0)
--- NOTE | 2018-03-15 22:20 | PQF ---
PROVIDER RESPONSE TEXT: Possible lice infestation REVIEWER QUERY TEXT: Medication Correlation for Diagnosis Your help is needed in capturing diagnoses for the corresponding medications ordered. Please clarify in the documentation diagnoses for the following medication(s). Medications: Permethrin topical ordered on 03/13/18 by the ANP. The patient's Clinical Indicators include: 03/13 Nursing notes and Neurology B[employer] AND [employer]AME MAN with documentation of "bugs crawling on her". Placed in isolatio n room for contact isolation. Permethrin topical ordered. Query created by: Natalie Bhat on 03/15/2018 6:51 AM Electronically signed by: Ke Sanders MD 03/15/2018 10:17 PM
--- NOTE | 2018-03-15 22:20 | PQF ---
PROVIDER RESPONSE TEXT: Agree with BMI 18.1 REVIEWER QUERY TEXT: Documentation Clarification Your help is requested in clarifying the following clinical documentation, if you can please further specify in the medical record and discharge summary if there is an associated diagnosis or not to go along with the following: The EMR has the patient listed as 4' 11", weighing 90 pounds with a BMI of 18.2. Seen by the oscar cason with the following documentation: BMI 18.1 ( Underweight ) Liberalize diet to regular, add Ensure P ophelia BID, reweigh. + weight loss, loss of appetite, homeless, eats 3 meals a day The patient's Clinical Indicators include: The EMR has the patient listed as 4' 11", weighing 90 pounds with a BMI of 18.2. Seen by the oscar cason with the following documentation: BMI 18.1 ( Underweight ) Liberalize diet to regular, add Ensure P ophelia BID, reweigh Query created by: Natalie Bhat on 03/15/2018 7:00 AM Electronically signed by: Ke Sanders MD 03/15/2018 10:17 PM
--- NOTE | 2018-03-16 17:12 | PQF ---
PROVIDER RESPONSE TEXT: Not abele to specify REVIEWER QUERY TEXT: Documentation Clarification Your response to the previous query regarding the low BMI was " Agree with BMI of 18.1". Please clar danica the diagnosis associated with the low BMI. The EMR has the patient listed as 4' 11", weighing 90 pounds with a BMI of 18.2. Seen by the dieticimark cason with the following documentation: BMI 18.1 ( Underweight ) Liberalize diet to regular, add Ensure P ophelia BID, reweigh Your help is requested in clarifying the following clinical documentation, if you can please further specify in the medical record and discharge summary. The patient's Clinical Indicators include: The EMR has the patient listed as 4' 11", weighing 90 pounds with a BMI of 18.2. Seen by the dieticia yoav with the following documentation: BMI 18.1 ( Underweight ) Liberalize diet to regular, add Ensure P ophelia BID, reweigh Query created by: Natalie Bhat on 03/16/2018 8:21 AM Electronically signed by: Ke Sanders MD 03/16/2018 5:09 PM
--- NOTE | 2018-03-16 21:52 | DS ---
REASON FOR ADMISSION: This is a 57-year-old female, homeless, was admitted for intractable dizziness. COURSE OF HOSPITALIZATION: The patient was admitted to the telemetry floor and she had a Neurology consultation done by Dr. Vasquez. The patient had an MRI that was unremarkable. The patient was continued on her antiseizure medications as well as Antivert. The patient's symptoms gradually improved and she was started on physical therapy and discharged asymptomatic. FINAL DIAGNOSES: Seizure disorder, vertigo, likely vestibular neuronitis that completely resolved before the patient's discharge. [facility] MD Tommy
[2018-03-17 13:33] LABS: PHENYTOIN,FREE 0.6 mg/L (1.0-2.0)
== END 2018-03-15 12:20 | disposition home or self-care (01) | DRG 65 ==
LOC: H.ER 06:45 → H.ERHOLD 12:13 → H.TEL 13:51 → OBSVTOIN 03-13 14:10
PROVIDERS: ADMIT Internal Medicine; ATTEND Internal Medicine
DX: H81.20 Vestibular neuronitis, unspecified ear (principal); E87.6 Hypokalemia; H81.10 Benign paroxysmal vertigo, unspecified ear; R29.6 Repeated falls; G40.909 Epilepsy, unspecified, not intractable, without status epilepticus; F41.9 Anxiety disorder, unspecified; F32.9 Major depressive disorder, single episode, unspecified; Z87.891 Personal history of nicotine dependence; Z88.0 Allergy status to penicillin; G89.29 Other chronic pain; M19.90 Unspecified osteoarthritis, unspecified site; B85.2 Pediculosis, unspecified; Z59.0 Homelessness

== ENCOUNTER 2018-03-16 17:11 | Emergency (ER) | payer MEDICAID ==
[2018-03-16 17:12] VITALS: BMI 18.1
[2018-03-16 17:34] VITALS: RESP 18
[2018-03-16] MEDS ORDERED: Sodium Chloride 0.9% 1,000 ML IV STA (18:04)
--- NOTE | 2018-03-16 18:23 | RAD ---
Date of service: 03/16/2018 HISTORY: possible admission COMPARISON: 12/22/2017 FINDINGS: LUNGS: The lungs are well inflated and clear. PLEURA: No pleural effusions or pneumothorax. CARDIOVASCULAR: The heart is normal in size. No aortic atherosclerotic calcification present. OSSEOUS STRUCTURES: Within normal limits for the patient's age. VISUALIZED UPPER ABDOMEN: Normal. OTHER FINDINGS: None. IMPRESSION: No active pulmonary disease.
--- NOTE | 2018-03-16 18:41 | ED PDOC ---
HPI: General Adult Time Seen by Provider: 03/16/18 17:50 Chief Complaint (Nursing): Dizziness/Lightheaded Chief Complaint (Provider): dizziness History Per: Patient History/Exam Limitations: no limitations Onset/Duration Of Symptoms: Hrs (today), Worse Since (onset) Current Symptoms Are (Timing): Still Present Additional Complaint(s): Radha Harris is a 57 year old female, with a past medical history of anxiety, who presents to the emergency department complaining of a worsening dizziness onset for x1 day. Patient states she was discharged from this hospital yesterday for similar symptoms. She was initially feeling well but began to feel a worsening dizziness today. She denies any chest pain, nausea, vomit, diarrhea or known sick contacts. Patient states she lives at the residential. Previous chart reviewed and does not show patient was admitted at this [facility], [facility] or [place]. PMD: None provided. Past Medical History Reviewed: Historical Data, Nursing Documentation, Vital Signs Vital Signs: Last Vital Signs Temp 97.6 F 03/16/18 17:16 Pulse 100 H 03/16/18 17:33 Resp 18 03/16/18 17:33 BP 115/85 03/16/18 17:33 Pulse Ox 96 03/16/18 17:33 - Medical History PMH: Anxiety, Arthritis, Back Problems, Bronchitis, Depression, Fractures (Rib & wrist), Gall Bladder Disease (Cholecystitis), Chronic Pain Denies: Diabetes, Hepatitis, HIV, HTN, Chronic Kidney Disease, Seizures, Sexually Transmitted Disease - Surgical History Surgical History: No Surg Hx - Family History Family History: States: Unknown Family Hx, Hypertension - Immunization History Hx Tetanus Toxoid Vaccination: No Hx Influenza Vaccination: No Hx Pneumococcal Vaccination: No - Home Medications Home Medications: Ambulatory Orders Medication Instructions Recorded RX: Ibuprofen [Motrin Tab] 800 mg PO Q12 PRN 12/06/17 RX: Trazodone HCl 150 mg PO HS 12/06/17 RX: busPIRone [Buspar] 5 mg PO TID 12/06/17 RX: cloNIDine [Catapres] 0.1 mg PO TID 12/06/17 RX: Meclizine [Meclizine*] 25 mg PO Q12 PRN #10 tab 03/11/18 RX: Acetaminophen/Butalbital/Caf 1 tab PO Q4 PRN #15 tab 03/14/18 [Fioricet] RX: Phenytoin, Extended [Dilantin] 100 mg PO Q12H #30 cer 03/14/18 - Allergies Allergies/Adverse Reactions: Allergies Allergy/AdvReac Type Severity Reaction Status Date / Time Penicillins Allergy unknown Verified 03/16/18 17:16 Review of Systems ROS Statement: Except As Marked, All Systems Reviewed And Found Negative Cardiovascular: Negative for: Chest Pain Gastrointestinal: Negative for: Nausea, Vomiting, Diarrhea Neurological: Positive for: Dizziness Physical Exam - Reviewed Nursing Documentation Reviewed: Yes Vital Signs Reviewed: Yes - Physical Exam Appears: Positive for: No Acute Distress Head Exam: Positive for: ATRAUMATIC, NORMAL INSPECTION, NORMOCEPHALIC Skin: Positive for: Normal Color, Warm, Dry Eye Exam: Positive for: Normal appearance, EOMI, PERRL Neck: Positive for: Normal, Painless ROM, Supple Cardiovascular/Chest: Positive for: Tachycardia (borderline tachy, fluctuating between 97 & 101. Regular rhythm). Negative for: Murmur Respiratory: Positive for: Normal Breath Sounds. Negative for: Respiratory Distress Gastrointestinal/Abdominal: Positive for: Normal Exam, Soft. Negative for: Tenderness, Guarding, Rebound Back: Positive for: Normal Inspection. Negative for: L CVA Tenderness, R CVA Tenderness, Vertebral Tenderness Extremity: Positive for: Normal ROM (upper and lower extremities). Negative for: Deformity, Swelling Neurologic/Psych: Positive for: Alert, Oriented, Gait (steady). Negative for: Motor/Sensory Deficits - Laboratory Results Result Diagrams: 03/16/18 18:17 03/16/18 18:17 - ECG O2 Sat by Pulse Oximetry: 96 (RA) Pulse Ox Interpretation: Normal Medical Decision Making Medical Decision Making: Time: 17:50 Initial Impression: 57 y/o female reporting weakness and dizziness. Ordered IV fluids, Reglan, EKG, CXR, Flu swab and reassess patient. Anticipating discharge home. Initial Plan: --VBG Shock Panel --EKG --BMP --Dilantin --CBC w/ differential --Chest portable [RAD] --Sodium Chloride 1,000 ml IV 1,000 mls/hr --Reglan 10 mg IVP --Influenza A B --UA --Reevaluation 19:50 -On repeat evaluation patient shows no nystagmus, chief construction inspector deficit, weakness, leth argy or AMS. 19:55 Patient shows no abnormalities on physical exam. Lab work is normal. Dilantin elevated, advised to miss the next dose and follow up with PMD. Labs otherwise within normal limits. EKG shows no abnormalities. Patient advised to follow up with PMD with x24-48 hrs for repeat blood work. ----- Scribe Attestation: Documented by Ronaldo Alcala, acting as a scribe for Ambar Jauregui MD. Provider Scribe Attestation: All medical record entries made by the Scribe were at my direction and personally dictated by me. I have reviewed the chart and agree that the record accurately reflects my personal performance of the history, physical exam, medical decision making, and the department course for this patient. I have also personally directed, reviewed, and agree with the discharge instructions and disposition. Disposition - Clinical Impression Clinical Impression: Dizzy spells - Disposition Disposition: Routine/Home Disposition Time: 19:55 Condition: STABLE Additional Instructions: Today your labs show that your Dilantin level is mildly elevated. Therefore, you should skip your next dose. Follow up with your primary medical doctor within 24 to 48 hours for follow up of labs and possible medication adjustment. Return to the emergency department if you develop weakness, blurry vision, or other new symptoms. Instructions: Vertigo (a Type of Dizziness) (DC), Phenytoin Forms: [employer] (Welsh) Print Language: SLOVENIAN
[2018-03-16 18:43] LABS: BASO # 0.1 K/uL (0.0-0.2); BASO % 1.4 % (0.0-2.0); EOS # 0.1 K/uL (0.0-0.7); EOS % 1.7 % (0.0-4.0); HEMOGLOBIN 12.2 g/dL (12.0-16.0); LYMPH # 2.1 K/uL (1.0-4.3); LYMPH % 29.4 % (20.0-40.0); MEAN CELL VOLUME 86.6 fl (81.0-99.0); MEAN CORPUSCULAR HEMOGLOBIN 28.5 pg (27.0-31.0); MEAN CORPUSCULAR HGB CONC 32.9 g/dL (33.0-37.0); MONO # 0.8 K/uL (0.0-0.8); MONO % 10.6 % (0.0-10.0); NEUT # 4.1 K/uL (1.8-7.0); NEUT % 56.9 % (50.0-75.0); NRBC % 0.1 % (0.0-0.0); RBC 4.3 Mil/uL (3.80-5.20); RED CELL DISTRIBUTION WIDTH 14.3 % (11.5-14.5); WHITE BLOOD COUNT 7.1 K/uL (4.8-10.8)
[2018-03-16 19:00] LABS: VENOUS BLOOD GAS BASE EXCESS 2.2 mmol/L (0.0-2.0); VENOUS BLOOD GAS PCO2 46 mmHg (40-60); VENOUS BLOOD GAS PO2 21 mm/Hg (30-55); VENOUS BLOOD PH 7.39 (7.32-7.43)
[2018-03-16 19:03] LABS: BLOOD UREA NITROGEN 16 mg/dl (7-17); CALCIUM 9.3 mg/dL (8.4-10.2); GFR NON-AFRICAN AMERICAN > 60
[2018-03-16 20:41] VITALS: TEMP 97.8
[2018-03-16 20:53] VITALS: BP 116/70; PULSE 94
--- NOTE | 2018-03-17 10:41 | CARD ---
APPROVED REPORT Date of service: 03/16/2018 EKG Measurement Heart [id number] <Conclusion> Normal sinus rhythm Normal ECG
[2018-03-20 01:03] VITALS: O2SAT 96
== END 2018-03-16 20:05 | disposition home or self-care (01) ==
LOC: H.ER 17:11
DX: R42 Dizziness and giddiness (principal); Z86.59 Personal history of other mental and behavioral disorders; G89.29 Other chronic pain; Z88.0 Allergy status to penicillin
CPT/HCPCS: 71045; 80048; 80185; 82803; 85025; 87804; 93005; 96361; 96374; 99285; J2765; J7030

== ENCOUNTER 2018-03-26 22:09 | Emergency (ER) | payer MEDICAID ==
[2018-03-26 22:09] VITALS: BMI 18.1
[2018-03-26 23:43] LABS: BARBITURATES, UR NEGATIVE (NEGATIVE)
[2018-03-26 23:44] LABS: BENZODIAZEPINES, UR NEGATIVE (NEGATIVE); OPIATES, UR NEGATIVE (NEGATIVE); PHENCYCLIDINE, UR NEGATIVE (NEGATIVE)
--- NOTE | 2018-03-27 01:04 | ED PDOC ---
HPI: Psych/Substance Abuse Time Seen by Provider: 03/26/18 22:14 Chief Complaint (Nursing): Substance Abuse Chief Complaint (Provider): Substance Abuse History Per: Patient, EMS History/Exam Limitations: no limitations Onset/Duration Of Symptoms: Mins Additional Complaint(s): 57 year old female presents to the ED via EMS after being observed taking Ambien in the longterm. EMS reports patient took 6 pills but patient states she only took 3. Patient denies any complaints and states she just wants to sleep. Denies any suicidal or homicidal thoughts. PMD: none Past Medical History Reviewed: Historical Data, Nursing Documentation, Vital Signs Vital Signs: Last Vital Signs Temp 98.9 F 03/26/18 22:11 Pulse 114 H 03/27/18 00:15 Resp 19 03/27/18 00:15 BP 119/92 H 03/26/18 22:11 Pulse Ox 98 03/27/18 00:15 - Medical History PMH: Anxiety, Arthritis, Back Problems, Bronchitis, Depression, Fractures (Rib & wrist), Gall Bladder Disease (Cholecystitis), Chronic Pain Denies: Diabetes, Hepatitis, HIV, HTN, Chronic Kidney Disease, Seizures, Sexually Transmitted Disease - Surgical History Surgical History: No Surg Hx - Family History Family History: States: Unknown Family Hx, Hypertension - Immunization History Hx Tetanus Toxoid Vaccination: No Hx Influenza Vaccination: No Hx Pneumococcal Vaccination: No - Home Medications Home Medications: Ambulatory Orders Medication Instructions Recorded Ibuprofen [Motrin Tab] 800 mg PO Q12 PRN 12/06/17 Trazodone HCl 150 mg PO HS 12/06/17 busPIRone [Buspar] 5 mg PO TID 12/06/17 cloNIDine [Catapres] 0.1 mg PO TID 12/06/17 Meclizine [Meclizine*] 25 mg PO Q12 PRN #10 tab 03/11/18 Acetaminophen/Butalbital/Caf 1 tab PO Q4 PRN #15 tab 03/14/18 [Fioricet] Phenytoin, Extended [Dilantin] 100 mg PO Q12H #30 cer 03/14/18 - Allergies Allergies/Adverse Reactions: Allergies Allergy/AdvReac Type Severity Reaction Status Date / Time Penicillins Allergy unknown Verified 03/16/18 17:16 Review of Systems ROS Statement: Except As Marked, All Systems Reviewed And Found Negative Psych: Negative for: Other (suicidal or homicidal thoughts) Physical Exam - Reviewed Nursing Documentation Reviewed: Yes Vital Signs Reviewed: Yes - Physical Exam Appears: Positive for: Non-toxic, No Acute Distress Head Exam: Positive for: ATRAUMATIC, NORMOCEPHALIC Skin: Positive for: Normal Color, Warm, Dry Eye Exam: Positive for: Normal appearance Neck: Positive for: Normal, Painless ROM Cardiovascular/Chest: Positive for: Regular Rate, Rhythm Respiratory: Positive for: Normal Breath Sounds. Negative for: Wheezing, Respiratory Distress Gastrointestinal/Abdominal: Positive for: Normal Exam, Soft. Negative for: Tenderness Extremity: Positive for: Normal ROM Neurologic/Psych: Positive for: Alert, Oriented (x2), Other (Arousable to physical stimulus) - ECG O2 Sat by Pulse Oximetry: 98 (RA) Pulse Ox Interpretation: Normal Medical Decision Making Medical Decision Making: A/P: 57 y/o female presenting with Ambien abuse with no hypoxia or bradypnea Initial Plan: --Urine drug screen --Glucose routine Will observe patient until patient is more awake. 400 --Patient is now awake, alert, walking around ER with steady gait, unassisted --Advised abstension from sleeping pills in the future --Well appearing upon discahrge Scribe Attestation: Documented by Rahul Jackson acting as a scribe for Alfa Boudreaux MD. Provider Scribe Attestation: All medical record entries made by the Scribe were at my direction and personally dictated by me. I have reviewed the chart and agree that the record accurately reflects my personal performance of the history, physical exam, medical decision making, and the department course for this patient. I have also personally directed, reviewed, and agree with the discharge instructions and disposition. Disposition - Clinical Impression Clinical Impression: Ingestion of substance - Patient ED Disposition Is Patient to be Admitted: No - Disposition Referrals: Community Mental Health [Outside] Disposition: Routine/Home Disposition Time: 04:01 Condition: IMPROVED Instructions: Drug Abuse and Drug Addiction (DC) Forms: [employer] (Greek)
[2018-03-27 01:13] VITALS: RESP 16
[2018-03-27 04:02] VITALS: O2SAT 98
[2018-03-27 05:49] VITALS: BP 112/73; PULSE 92; TEMP 98
== END 2018-03-27 05:40 | disposition home or self-care (01) ==
LOC: H.ER 22:09
DX: F13.10 Sedative, hypnotic or anxiolytic abuse, uncomplicated (principal); F32.9 Major depressive disorder, single episode, unspecified; F41.9 Anxiety disorder, unspecified; G89.29 Other chronic pain; Z88.0 Allergy status to penicillin

== ENCOUNTER 2018-03-27 11:30 | Emergency (ER) | payer MEDICAID ==
[2018-03-27 11:33] VITALS: BMI 21.4
[2018-03-27 11:35] VITALS: O2SAT 96
--- NOTE | 2018-03-27 13:24 | ED PDOC ---
HPI: Psych/Substance Abuse Time Seen by Provider: 03/27/18 12:42 Chief Complaint (Nursing): Substance Abuse Chief Complaint (Provider): I want to sleep and I'm cold Additional Complaint(s): 57 year old female with hx of anxiety/depression who was BIBA to ED for possible substance abuse. Pt was seen here in ED yesterday after being BIBA for taking Ambien at retirement. She was observed and discharged when finally awake. Pt states that she is tired and wants to sleep. She denies taking any further ambien or other substance today. She states that she asked EMS to bring her in because she was cold. Denies any physical complaints at this time including chest pain/palpitations/SOB. Past Medical History Reviewed: Historical Data, Nursing Documentation Vital Signs: Last Vital Signs Temp 97.4 F L 03/27/18 11:35 Pulse 103 H 03/27/18 12:11 Resp 18 03/27/18 11:35 BP 110/80 03/27/18 11:35 Pulse Ox 96 03/27/18 11:35 - Medical History PMH: Anxiety, Arthritis, Back Problems, Bronchitis, Depression, Fractures (Rib & wrist), Gall Bladder Disease (Cholecystitis), Chronic Pain Denies: Diabetes, Hepatitis, HIV, HTN, Chronic Kidney Disease, Seizures, Sexually Transmitted Disease - Family History Family History: States: Unknown Family Hx, Hypertension - Immunization History Hx Tetanus Toxoid Vaccination: No Hx Influenza Vaccination: No Hx Pneumococcal Vaccination: No - Home Medications Home Medications: Ambulatory Orders Medication Instructions Recorded Ibuprofen [Motrin Tab] 800 mg PO Q12 PRN 12/06/17 Trazodone HCl 150 mg PO HS 12/06/17 busPIRone [Buspar] 5 mg PO TID 12/06/17 cloNIDine [Catapres] 0.1 mg PO TID 12/06/17 Meclizine [Meclizine*] 25 mg PO Q12 PRN #10 tab 03/11/18 Acetaminophen/Butalbital/Caf 1 tab PO Q4 PRN #15 tab 03/14/18 [Fioricet] Phenytoin, Extended [Dilantin] 100 mg PO Q12H #30 cer 03/14/18 guaiFENesin/Dextromethorphan 10 ml PO Q6 PRN 5 Days udc 03/27/18 [guaiFENesin-DM] - Allergies Allergies/Adverse Reactions: Allergies Allergy/AdvReac Type Severity Reaction Status Date / Time Penicillins Allergy unknown Verified 03/16/18 17:16 - Laboratory Results Result Diagrams: 03/27/18 13:50 03/27/18 13:50 - ECG O2 Sat by Pulse Oximetry: 96 Medical Decision Making Medical Decision Making: CBC, CMP, serum ETOH Urine dip Urine drug screen Re-evaluated @ 15:59: awake and alert. able to ambulate with steady gait. Stable for d/c home. Disposition - Clinical Impression Clinical Impression: Malingering - Patient ED Disposition Is Patient to be Admitted: No - Disposition Disposition: Routine/Home Disposition Time: 17:02 Condition: STABLE Additional Instructions: F/u with your primary care doctor as needed Prescriptions: guaiFENesin/Dextromethorphan [guaiFENesin-DM] 10 ml PO Q6 PRN 5 Days udc PRN Reason: Cough Print Language: MACANESE
[2018-03-27 14:05] LABS: BASO % 0.5 % (0.0-2.0); EOS # 0.1 K/uL (0.0-0.7); EOS % 1.2 % (0.0-4.0); HEMOGLOBIN 11.6 g/dL (12.0-16.0); LYMPH % 23.6 % (20.0-40.0); MEAN CELL VOLUME 85.3 fl (81.0-99.0); MEAN CORPUSCULAR HEMOGLOBIN 28.2 pg (27.0-31.0); MEAN PLATELET VOLUME 7.7 fl (7.2-11.7); MONO % 11.9 % (0.0-10.0); NEUT # 5.3 K/uL (1.8-7.0); NEUT % 62.8 % (50.0-75.0); NRBC % 0.1 % (0.0-0.0); RBC 4.1 Mil/uL (3.80-5.20); RED CELL DISTRIBUTION WIDTH 14.3 % (11.5-14.5); WHITE BLOOD COUNT 8.4 K/uL (4.8-10.8)
[2018-03-27 14:11] LABS: BARBITURATES, UR NEGATIVE (NEGATIVE)
[2018-03-27 14:13] LABS: BENZODIAZEPINES, UR NEGATIVE (NEGATIVE); OPIATES, UR NEGATIVE (NEGATIVE); PHENCYCLIDINE, UR NEGATIVE (NEGATIVE)
[2018-03-27 14:18] LABS: ALB/GLOB RATIO 1.1 (1.0-2.1); ALT/SGPT 33 U/L (9-52); AST/SGOT 34 U/L (14-36); BLOOD UREA NITROGEN 12 mg/dl (7-17); CALCIUM 9.4 mg/dL (8.4-10.2); GFR NON-AFRICAN AMERICAN > 60
[2018-03-27 17:04] VITALS: BP 132/86; PULSE 111; RESP 19; TEMP 98
--- NOTE | 2018-03-30 12:12 | CARD ---
APPROVED REPORT Date of service: 03/27/2018 EKG Measurement Heart [id number] <Conclusion> Sinus tachycardia Otherwise normal ECG
== END 2018-03-27 17:04 | disposition home or self-care (01) ==
LOC: H.ER 11:30
DX: Z76.5 Malingerer [conscious simulation] (principal); Z86.59 Personal history of other mental and behavioral disorders; G89.29 Other chronic pain; Z88.0 Allergy status to penicillin

== ENCOUNTER 2018-05-25 11:34 | Emergency (ER) | payer MEDICAID ==
[2018-05-25 11:49] VITALS: BMI 20.2
[2018-05-25 11:54] VITALS: TEMP 97
--- NOTE | 2018-05-25 12:04 | ED PDOC ---
HPI: Back Time Seen by Provider: 05/25/18 12:00 Chief Complaint (Nursing): Back Pain Chief Complaint (Provider): Back Pain History Per: Patient, EMS History/Exam Limitations: no limitations Onset/Duration Of Symptoms: Days (x5 years), Worse Since (x2 days) Current Symptoms Are (Timing): Still Present Additional Complaint(s): 57 year old female presents to the ED via EMS for evaluation of left lower back pain radiating into her left leg for the past five years, worsening the past two days. Patient reports that she sees Dr. Viramontes for the pain who prescribed tramadol for one month, but patient ran out three days ago and has not been back to see him. This morning, she reports the pain worsened so she took an ambient which was also prescribed to her because she thought it was for pain management, but just became drowsy instead. Denies other complaints. PMD: Pallavi Viramontes Past Medical History Reviewed: Historical Data, Nursing Documentation, Vital Signs Vital Signs: Last Vital Signs Temp 97 F L 05/25/18 11:52 Pulse 112 H 05/25/18 11:52 Resp 20 05/25/18 11:52 BP 112/81 05/25/18 11:52 Pulse Ox 95 05/25/18 11:52 - Medical History PMH: Anxiety, Arthritis, Back Problems, Bronchitis, Depression, Fractures (Rib & wrist), Gall Bladder Disease (Cholecystitis), Chronic Pain Denies: Diabetes, Hepatitis, HIV, HTN, Chronic Kidney Disease, Seizures, Sexually Transmitted Disease - Surgical History Surgical History: No Surg Hx - Family History Family History: States: Unknown Family Hx, Hypertension - Immunization History Hx Tetanus Toxoid Vaccination: No Hx Influenza Vaccination: No Hx Pneumococcal Vaccination: No - Home Medications Home Medications: Ambulatory Orders Medication Instructions Recorded Ibuprofen [Motrin Tab] 800 mg PO Q12 PRN 12/06/17 Trazodone HCl 150 mg PO HS 12/06/17 busPIRone [Buspar] 5 mg PO TID 12/06/17 cloNIDine [Catapres] 0.1 mg PO TID 12/06/17 Meclizine [Meclizine*] 25 mg PO Q12 PRN #10 tab 03/11/18 Acetaminophen/Butalbital/Caf 1 tab PO Q4 PRN #15 tab 03/14/18 [Fioricet] Phenytoin, Extended [Dilantin] 100 mg PO Q12H #30 cer 03/14/18 guaiFENesin/Dextromethorphan 10 ml PO Q6 PRN 5 Days [facility] [place] 03/27/18 [guaiFENesin-DM] - Allergies Allergies/Adverse Reactions: Allergies Allergy/AdvReac Type Severity Reaction Status Date / Time Penicillins Allergy unknown Verified 03/16/18 17:16 Review of Systems ROS Statement: Except As Marked, All Systems Reviewed And Found Negative Musculoskeletal: Positive for: Back Pain (left lower radiating into left leg) Physical Exam - Reviewed Nursing Documentation Reviewed: Yes Vital Signs Reviewed: Yes - Physical Exam Appears: Positive for: No Acute Distress Neck: Positive for: Normal, Painless ROM, Supple Cardiovascular/Chest: Positive for: Regular Rate, Rhythm Respiratory: Positive for: Normal Breath Sounds. Negative for: Respiratory Distress Gastrointestinal/Abdominal: Positive for: Normal Exam, Soft. Negative for: Tenderness Back: Positive for: Other (left paraspinal tenderness in L4-L5; no right paraspinal tenderness; straight leg raise negative bilaterally to 30 degrees). Negative for: Vertebral Tenderness Extremity: Positive for: Normal ROM (all extremities) Neurologic/Psych: Positive for: Alert, Oriented (x3). Negative for: Motor/Sensory Deficits - ECG O2 Sat by Pulse Oximetry: 95 (RA) Pulse Ox Interpretation: Normal Medical Decision Making Medical Decision Making: Time: 1205 Initial Impression: chronic back pain Initial Plan: --Patient requesting to close her eyes and rest until the Ambient wears off. 1411 Toradol 30mg IM ordered. Scribe Attestation: Documented by Isa Cabrera, acting as a scribe for Antonio Nuñez PA-C. Provider Scribe Attestation: All medical record entries made by the Scribe were at my direction and personally dictated by me. I have reviewed the chart and agree that the record accurately reflects my personal performance of the history, physical exam, medical decision making, and the department course for this patient. I have also personally directed, reviewed, and agree with the discharge instructions and disposition. Disposition - Clinical Impression Clinical Impression: Back pain, Chronic back pain - Patient ED Disposition Is Patient to be Admitted: No Doctor Will See Patient In The: Office Counseled Patient/Family Regarding: Diagnosis, Need For Followup - Disposition Referrals: Pallavi Viramontes MD [Medical Doctor] - Disposition: Routine/Home Disposition Time: 15:01 Condition: STABLE Instructions: Chronic Pain Forms: [facility] (Amharic)
[2018-05-25 15:00] VITALS: BP 115/80; PULSE 70; RESP 18
[2018-05-25 15:02] VITALS: O2SAT 95
== END 2018-05-25 15:07 | disposition home or self-care (01) ==
LOC: H.ER 11:34
DX: M54.9 Dorsalgia, unspecified (principal); F32.9 Major depressive disorder, single episode, unspecified; F41.9 Anxiety disorder, unspecified; G89.29 Other chronic pain; Z88.0 Allergy status to penicillin
CPT/HCPCS: 96372; 99283; J1885